=== PATIENT | female | born 1980 ===

== ENCOUNTER 2023-08-15 16:06 | Outpatient (AMB) | payer BC, SELFPAY ==
--- NOTE | 2023-08-15 16:09 | AM.OFFWIN_ITS ---
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 Denies fevers, chills, nausea or vomiting. Denies any recent sick contacts. PFSH Social History Patient Tobacco Use Status: Never used Tobacco Review of Systems Const All systems reviewed & are unremarkable except as noted in HPI and below Physical Exam Vital Signs: Last Vital Signs Temp 98.7 F 08/15/23 16:21 Pulse 62 08/15/23 16:21 BP 122/68 08/15/23 16:21 Pulse Ox 98 08/15/23 16:21 Oxygen Delivery Method Room Air 08/15/23 16:21 BMI result Body Mass Index 26.9 Const General: comfortable and no acute distress HEENT Head: Yes normocephalic Ears: external ears normal and TM's normal bilaterally General nose exam: Abnormal mucous membranes and turbinates present boggy and erythematous Face and sinus: Yes sinuses nontender Mouth: moist mucous membranes Throat: Yes posterior oropharynx normal Resp Effort & Inspection: normal respiratory effort, able to speak in complete sentences and no cough Auscultation: clear to auscultation bilaterally, no crackles, no rales, no rhonchi and no wheezes Cardio Rate: regular rate Rhythm: regular rhythm Results AMB Rapid Strep AMB Rapid Strep Negative Last Edit by Rylan Li CMA on 08/15/23 16 :47 Results Reviewed Results Reviewed: Laboratory Last Values Strep Scn Rapid Clinic Negative 08/15/23 16:47 Assessment & Plan Assessment & Plan (1) Acute pharyngitis: Code(s): J02.9 - Acute pharyngitis, unspecified Qualifiers: Pharyngitis/tonsillitis etiology: unspecified etiology Qualified Code(s): J02.9 - Acute pharyngitis, unspecified Plan: - OTC sore throat remedies - warm fluids with honey - Acetaminophen for pain relief. Orders: Orders SARS-CoV2/FLU/RSV Today J02.9 - Acute pharyngitis, unspecified AMB Rapid Strep Screen Today Z13.9 - Encounter for screening, unspecified Medications: New sbotidlbajvgo-XB-qbvkbegdsap 5-10-100 mg/5 mL (Adult Robitussin Peak Cold M-S) 10 mL PO Q4H PRN 237 mL 0RF cold symptoms J02.9 - Acute pharyngitis, unspecified benzocaine 20% 1 appl mucous membrane BID PRN 57 grams 0RF mouth irritation J02.9 - Acute pharyngitis, unspecified dexamethasone 20 mg PO DAILY 7 days 7 tabs 0RF J02.9 - Acute pharyngitis, unspecified Coding Level of Care Code Est Pt Level 3 (44728) Diagnoses Acute pharyngitis, unspecified etiology J02.9 Pharyngitis/tonsillitis etiology: unspecified etiology Time Spent (min) 15
[2023-08-15 16:21] VITALS: BP 122/68; PULSE 62; TEMP 37.1; O2SAT 98; BMI 26.9
== END 2023-08-15 17:16 | disposition home or self-care (01) ==
PROVIDERS: PCP Internal Medicine; Visit Provider Nurse Practitioner Family
DX: J02.9 Acute pharyngitis, unspecified (principal)
CPT/HCPCS: 87880; 99213

== ENCOUNTER 2023-08-15 16:41 | Outpatient (REF) | payer BC, SELFPAY ==
[2023-08-16 14:30] LABS: Influenza A PCR NEGATIVE (Negative); Influenza B PCR NEGATIVE (Negative); Resp Syncy Virus RNA Qual PCR NEGATIVE (Negative); SARS COV2 PCR INHOUSE NEGATIVE (Negative)
== END 2023-08-15 16:42 | disposition home or self-care (01) ==
LOC: HO.LAB 16:41
PROVIDERS: Visit Provider Nurse Practitioner Family
DX: Z11.52 Encounter for screening for COVID-19 (principal); Z20.822 Contact with and (suspected) exposure to COVID-19; J02.9 Acute pharyngitis, unspecified
CPT/HCPCS: 0241U

== ENCOUNTER 2023-09-02 15:39 | Outpatient (AMB) | payer BC, SELFPAY ==
[2023-09-02 13:35] VITALS: BP 112/80; PULSE 77; O2SAT 97; BMI 28.4
--- NOTE | 2023-09-02 13:35 | A.OFFPC_ITS ---
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 Allergies No Known Allergies Allergy (Verified 09/02/23 15:49) Medication List - Last Reconciled 09/02/23 by CONSTANTIN Serrano No Known Home Meds Tobacco use date assessed: 09/02/23 Dental Screening Dental Screen Date: 09/02/23 Did you have a dental visit in the last 12 months?: Yes Did you have a dental problem in the last 6 months where you did not have access to dental care?: No Was dental information given to patient?: Patient has dentist HPI HPI Comments History of Present Illness Details Patient is a 43-year-old female who I am meeting for the 1st time. She was seen in our walk-in clinic 2 weeks prior for pharyngitis, her symptoms have resolved aside from a lingering dry cough that gets worse when she lays down. Patient has no significant past medical history. Patient has surgical history of cystectomy on bilateral ovaries. Patient is due for mammogram, will refer. Patient is due for Pap smear, will refer. Patient has a chief complaint of snoring at night and feeling like she does not get restful sleep. Patient has no history of respiratory disease. Will refer to Sleep Medicine for evaluation of REGINA. The patient also states that after having 4 children she has developed incontinence when she is trying to exercise. Denies pelvic or saddle numbness. Will refer to OBGYN. [facility] Surgical History History of ovarian cystectomy Social History Housing: House Patient Tobacco Use Status: Never used Tobacco e-Cigarette/Vaping Use: Never Used service: No Current occupational exposures/hazards: No Cognitive needs: No Hearing needs: No Vision needs: No Female Reproductive History Menstrual Full term: 4 Questionnaire PHQ-9 Over the last 2 weeks, how often have you been bothered by any of the following problems? 1. Little interest or pleasure in doing things: not at all 2. Feeling down, depressed, or hopeless: not at all 3. Trouble falling or staying asleep, or sleeping too much: not at all 4. Feeling tired or having little energy: not at all 5. Poor appetite or overeating: not at all 6. Feeling bad about yourself - or that you are a failure or have let yourself or your family down: not at all 7. Trouble concentrating on things, such as reading the newspaper or watching television: not at all 8. Moving or speaking so slowly that other people could have noticed. Or the opposite - being so fidgety or restless that you have been moving around a lot more than usual: not at all 9. Thoughts that you would be better off or of hurting yourself in some way: not at all Total score: 0 Depression Screening Interpretation: Negative Depression Screening Done: Yes [id number] - PHQ-9 Billing: Yes Source: Developed by Drs. Jason Edward, Trena Sumner, Geovanny Tucker and colleagues, with an educational kaleb from [employer]. AUDIT C Alcohol Use Questionnaire (AUDIT-C) 1. How often do you have a drink containing alcohol?: Never 3. How often do you have six or more drinks on one occasion?: Never Total Score: 0 Score Reviewed/Action Taken: Yes MICHAEL-7 AMB Questionnaire MICHAEL-7 Feeling nervous, anxious, or on edge: 0 = Not at all Not being able to stop or control worryin = Not at all Worrying too much about different things: 0 = Not at all Trouble relaxin = Not at all Being so restless that it is hard to sit still: 0 = Not at all Becoming easily annoyed or irritable: 0 = Not at all Feeling afraid as if something awful might happen: 0 = Not at all Total MICHAEL-7 score (0-4 normal; 5-9 mild; 10-14 moderate; 15-21 severe): 0 Source: Developed by Drs. Jason Edward, Geovanny Kelley and colleagues, with an educational kaleb from [employer]. MICHAEL-7 Assessment Billing MICHAEL-7 Assessment Tool: MICHAEL-7 Assessment 06642 Review of Systems Const All systems reviewed & are unremarkable except as noted in HPI and below Reports snoring ENT Denies dizziness, Denies post nasal drip and Denies sore throat Card Denies chest pain and Denies dyspnea on exertion Resp Denies chest congestion, Reports cough, Denies dyspnea on exertion, Reports snoring and Denies wheezing Reports urinary incontinence (While exercising.) Musc Denies numbness and Denies tingling Neuro Denies dizziness, Denies numbness, Denies Sensory deficit (Neuro) and Denies tingling Aller/Immun Denies wheezing Physical exam (Primary Care) Care Plan Goal for BP management: Vital signs reviewed stable. Tobacco/Smoking Status: Tobacco use Status Tobacco use date assessed 09/02/23 09/02/23 13:37 Patient Tobacco Use Status Never used Tobacco 09/02/23 13:37 e-Cigarette/Vaping Use Never Used 09/02/23 13:37 Depression Screening Interpretation: Negative Const General: cooperative and no acute distress Orientation/consciousness: patient oriented x3 Limitations: no limitations HENMT Head: Yes normal to inspection and Yes normocephalic Eyes General: appearance normal, both eyes and all related structures Neck Neck: Yes normal visual inspection Chest Chest palpation & inspection: deferred Resp Effort & Inspection: normal respiratory effort Auscultation: clear to auscultation bilaterally Cardio Rate: regular rate Rhythm: regular rhythm Heart sounds: S1 normal heart sound present and S2 normal heart sound present Neuro General: patient oriented x3 and CN's II-XI intact bilaterally Sensory Exam: No Sensory deficit (Neuro) Psych Thought content: Normal thought content present Insight: Good insight present (Psych) Judgement: Good judgement present (Psych) Assessment and Plan Assessment & Plan (1) Snoring: Comment: Patient snores during the night. Will refer to Sleep Medicine for REGINA workup. Code(s): R06.83 - Snoring (2) Urinary incontinence: Comment: Will refer to pelvic floor therapy for stress incontinence while exercising. Patient form she can try using Kegel exercises to help with this. Code(s): R32 - Unspecified urinary incontinence Qualifiers: Urinary Incontinence type: stress incontinence Qualified Code(s): N39.3 - Stress incontinence (female) (male) (3) Cough: Comment: Patient has cough post pharyngitis. Patient will be given bends on today to be taken as directed. Code(s): R05.9 - Cough, unspecified Qualifiers: Cough type: acute Qualified Code(s): R05.1 - Acute cough Plan: Take your medications as prescribed. If you were prescribed antibiotics today, it is important that you take your medication to their entirety, do not skip any doses, do not finish them early. Follow-up with your primary care provider this week. Return to the emergency department with new or worsening symptoms. Such as fevers, chills, chest pain, shortness of breath, nausea, vomiting, dizziness, headache, vision changes, lethargy In case of emergency call 911 Plan Patient will draw labs follow-up with physical exam in 3-4 months. Orders: Orders UA CC w/rflx Micro + Cult Today Z13.89 - Encounter for screening for other disorder Lipid Panel Today Z13.220 - Encounter for screening for lipoid disorders Vitamin D 25-OH (D2 and D3) Today Z13.21 - Encounter for screening for nutritional disorder Vitamin B6 Today Z13.21 - Encounter for screening for nutritional disorder Vitamin B12 Today Z13.21 - Encounter for screening for nutritional disorder TSH reflex Free T4 Today Z13.29 - Encounter for screening for other suspected endocrine disorder Complete Blood Count Auto Diff Today Z13.0 - Encounter for screening for diseases of the blood and blood-forming organs and certain disorders involving the immune mechanism Comprehensive Met. 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
== END 2023-09-02 16:11 | disposition home or self-care (01) ==
LOC: HO.HMGC 15:39
PROVIDERS: PCP Nurse Practitioner Primary Care; Visit Provider Nurse Practitioner Primary Care
DX: R06.83 Snoring (principal); N39.3 Stress incontinence (female) (male); R05.1 Acute cough
CPT/HCPCS: 99214

== ENCOUNTER → 2023-10-03 16:30 | Outpatient (BNV) | payer BC, SELFPAY | PROVIDERS: PCP Nurse Practitioner Primary Care; Visit Provider Radiology Diagnostic Radiology | DX: Z12.31 Encounter for screening mammogram for malignant neoplasm of breast (principal) | CPT/HCPCS: 77063; 77067 ==

== ENCOUNTER 2023-10-03 16:34 | Outpatient (REF) | payer BC, SELFPAY ==
--- NOTE | ~2023-10-03 | MM_ITS ---
EXAMINATION: MM SCREENING DIGITAL BREAST TOMOSYNTHESIS, BILATERAL CLINICAL INFORMATION: Screening. Asymptomatic. COMPARISON: Mammography: This is a baseline mammogram. TECHNIQUE: Digital breast tomosynthesis is performed in both the craniocaudal and mediolateral oblique views along with computer-aided detection (CAD). Synthesized 2D images are generated from the tomosynthesis. FINDINGS: The breasts are heterogeneously dense, which may obscure small masses (ACR BI-RADS breast composition Category c). There are no significant masses, abnormal calcifications, or other abnormalities. MM/MM tomosynthesis screening BI IMPRESSION: No mammographic evidence of malignancy. ASSESSMENT: BI-RADS BI-RADS 1 - Negative RECOMMENDATION: Routine annual mammography screening. 1 year F/U This examination should not preclude the clinical evaluation of a suspicious palpable abnormality. This patient's information was entered into a reminder system with a target due date for their next mammogram.
== END 2023-10-03 16:35 | disposition home or self-care (01) ==
LOC: HO.MAMMO 16:34
PROVIDERS: PCP Nurse Practitioner Primary Care; Visit Provider Nurse Practitioner Primary Care
DX: Z12.31 Encounter for screening mammogram for malignant neoplasm of breast (principal)
CPT/HCPCS: 77063; 77067

== ENCOUNTER 2023-12-12 11:05 | Outpatient (REF) | payer BC, SELFPAY ==
[2023-12-12 13:28] LABS: Appearance Urine Clear; Color Urine Yellow; Glucose Urine UA Negative (Negative); Leukocyte Esterase Urine Small (1+) (Negative); Nitrite Urine Negative (Negative); UMIC TRIGGER UACC YES; Urine Blood Small (1+) (Negative); Urine Ketones Negative (Negative); Urine Protein Negative (Neg-Trace)
[2023-12-12 13:42] LABS: Bacteria Urine 1+ (None Seen); Hyaline Casts Urine 0-2 /LPF (0-2); RBC Urine 0-2 /HPF (0-2); UACC Culture Trigger YES; WBC Urine 0-5 /HPF (0-5)
[2023-12-12 14:03] LABS: MANUAL DIFF FLAG NO
[2023-12-12 14:16] LABS: Basophils Absolute Auto 0.1 X10*3/uL (0.0-0.2); Basophils Percent Auto 0.5 % (0-2); Eosinophils Absolute Auto 0.1 X10*3/uL (0.0-0.4); Eosinophils Percent Auto 0.6 % (0-4); Hematocrit 41.4 % (37.0-47.0); Hemoglobin 13.8 g/dl (12.0-16.0); Imm Gran Abs Auto 0.05 X10*3/uL (0.00-0.03); Imm Gran Pct Auto 0.5 % (0.0-0.4); Lymphocytes Absolute Auto 1.6 X10*3/uL (1.2-4.9); Lymphocytes Percent Auto 14.4 % (20-40); Mean Corpuscular HGB Conc 33.3 g/dl (31.0-35.0); Mean Corpuscular Hemoglobin 29.7 pg (27.0-33.0); Mean Corpuscular Volume 89.2 fL (80.0-98.0); Monocytes Absolute Auto 0.8 X10*3/uL (0.1-1.2); Monocytes Percent Auto 7.6 % (2-11); Neutrophils Absolute Auto 8.5 x10*3/uL (2.0-8.3); Neutrophils Percent Auto 76.4 % (45-73); Platelet Count 308 X10*3/uL (160-400); Red Blood Count 4.64 X10*6/uL (4.20-5.50); Red Cell Distribution Width 12.7 % (11.0-16.0); White Blood Count 11.1 X10*3/uL (4.8-10.8)
[2023-12-12 14:33] LABS: Alanine Aminotransferase 21 U/L (0-31); Albumin Level 4.6 g/dL (3.5-5.0); Alkaline Phosphatase 64 U/L (39-117); Anion Gap 13 (12-20); Aspartate Amino Transferase 18 U/L (5-31); Bilirubin Total 0.5 mg/dL (0.0-1.0); Blood Urea Nitrogen 7 mg/dL (9-16); Calcium 9.5 mg/dL (8.4-10.2); Carbon Dioxide 24 mmol/L (22-29); Chloride 104 mmol/L (96-108); Cholesterol 225 mg/dL (<200); Estimated Glomerular Filt Rate > 60; Glucose Random 96 mg/dL (60-115); HDL Cholesterol 46 mg/dL (>40); LDL Cholesterol Calculated 154 mg/dL (<100); Potassium 3.9 mmol/L (3.3-5.1); Sodium 137 mmol/L (135-145); Total Protein 8.2 g/dL (6.5-8.0); Triglycerides 128 mg/dL (<150)
[2023-12-12 14:48] LABS: TSH reflex Free T4 1.23 uIU/mL (0.32-4.0)
[2023-12-12 14:49] LABS: Vitamin B12 384 pg/mL (200-900)
[2023-12-16 11:02] LABS: Vitamin D 25-OH, D2 <4 ng/mL; Vitamin D 25-OH, D3 23 ng/mL; Vitamin D 25-OH, Total 23 ng/mL (30-100)
[2023-12-18 06:04] LABS: Vitamin B6 5.7 ng/mL (2.1-21.7)
== END 2023-12-12 11:06 | disposition home or self-care (01) ==
LOC: HO.HMGCLDS 11:05
PROVIDERS: PCP Nurse Practitioner Primary Care; Visit Provider Nurse Practitioner Primary Care
DX: Z13.220 Encounter for screening for lipoid disorders (principal); Z91.89 Other specified personal risk factors, not elsewhere classified; Z13.21 Encounter for screening for nutritional disorder; Z13.29 Encounter for screening for other suspected endocrine disorder; Z13.0 Encounter for screening for diseases of the blood and blood-forming organs and certain disorders involving the immune mechanism; R82.90 Unspecified abnormal findings in urine
CPT/HCPCS: 36415; 80053; 80061; 81001; 82306; 82607; 84207; 84443; 85025; 87086

== ENCOUNTER 2024-01-14 13:47 | Outpatient (AMB) | payer BC, SELFPAY ==
--- NOTE | 2024-01-14 13:50 | MHC.OFFVIS ---
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 Concha Siegel in [place]. She had her 4 children through that practice. She has had a Mirena IUD since the of her last child in 2018 so for about 6 years now she is not getting her periods with it but so uncomfortable and she feels like something is in there and she also is wondering if she can attribute effect of that to increased abdominal girth. She is considering taking it out and she is strongly encouraging to have vasectomy she says she only put the Mirena in temporarily until he got it but he never did. She is up-to-date on her mammograms, and she just recently started with her new primary care provider [facility] Surgical History History of ovarian cystectomy Social History Housing: House Patient Tobacco Use Status: Never used Tobacco e-Cigarette/Vaping Use: Never Used service: No Current occupational exposures/hazards: No Cognitive needs: No Hearing needs: No Vision needs: No Female Reproductive History Menstrual Age of Menarche: 12 Duration of menses: <3 days control method: progesterone injection Total pregnancies: 4 Full term: 4 History of abnormal pap smear: No (previous pap,neg unsure date(per patient)) Date of Mammogram: 10/03/23 (neg.) History of abnormal mammogram: No Physical Exam Vital Signs: Last Vital Signs BP 116/68 01/14/24 13:51 BMI result Body Mass Index 28.3 Const General: healthy appearing, comfortable, no acute distress, well developed and alert Nutritional Appearance: average body habitus Orientation/consciousness: patient oriented x3 Limitations: no limitations HEENT Head: Yes normocephalic Neck Neck: Yes normal visual inspection Chest Chest palpation & inspection: normal inspection of the chest Breast/axilla inspection: normal inspection of the breasts and normal inspection of the axillae Breast/axilla palpation: normal palpation of the breasts and normal palpation of the axillae Resp Effort & Inspection: normal respiratory effort GI Inspection: Yes normal to inspection, No Abdominal wall edema and No distended Palpation (GI): Soft to palpation and nontender Other: Within limits vagina and moist cervix multiparous pink smooth healthy appearing normal healthy appearing mucus no Mirena string visible nor able to be teased through cervical os Cytobrush either uterus small midposition mobile nontender adnexa nontender; fair to good tone with Kegel. Urged to do more Kegels. General: Yes bladder normal to palpation External Female Exam: normal external appearance and normal appearance of the urethra Speculum Exam - Vagina: normal appearance of the vagina, normal palpation and normal vaginal discharge Speculum Exam - Cervix: normal appearance of the cervix, normal palpation and nontender Bimanual exam- vagina & uterus: normal bimanual exam, normal palpation, uterine size normal, bladder normal to palpation, consistency normal, normal palpation, uterine mobility normal, uterine shape normal, No Cervical tenderness present, non-tender and no cervical motion tenderness Bimanual Exam- Adnexa, other: normal adnexae, no masses, normal and No adnexal tenderness Neuro General: patient oriented x3 Assessment & Plan Assessment & Plan (1) IUD complication: Comment: string not visible Code(s): T83.9XXA - Unspecified complication of genitourinary prosthetic device, implant and graft, initial encounter Category: Medical (2) Presence of 52 mg levonorgestrel-releasing intrauterine device (IUD): Comment: inserted sometime after of last child 2018, Dr Siegel Code(s): Z97.5 - Presence of (intrauterine) contraceptive device Category: Social Hx (3) Well woman exam with routine gynecological exam: Code(s): Z01.419 - Encounter for gynecological examination (general) (routine) without abnormal findings Category: Medical (4) Cervical cancer screening: Comment: 01/14/24- pap done Code(s): Z12.4 - Encounter for screening for malignant neoplasm of cervix Category: Medical Plan Pap smear was done. Testing for other infections done with the exam as well I am ordering a pelvic ultrasound to verify location the IUD. Discussed that the string often treats into the cervical os but that we do not have the instrument required to facilitate removal she and I will have an appointment after the ultrasound to review its findings. If the string is not still not visible at the visit she will be referred to the 501 office for attempted removal if the IUDs in the proper position. If it is not that will engender Shea discussion and plan as well. She is interested in going had an removing the Mirena IU S as she just wants it out at this time and if she needs to abstain until her gets a vasectomy she is fine with that. Orders: Orders PAP + HPV E6/E7 rfx 18/45 Today Z01.419 - Encounter for gynecological examination (general) (routine) without abnormal findings US pelvic and transvaginal Today T83.9XXA - Unspecified complication of genitourinary prosthetic device, implant and graft, initial encounter, Z97.5 - Presence of (intrauterine) contraceptive device CT NG by PCR Today Z20.2 - Contact with and (suspected) exposure to infections with a predominantly sexual mode of transmission Bacterial Vaginosis Panel Today N89.8 - Other specified noninflammatory disorders of vagina Coding Level of Care Code New Pt Prev Care 40-64y(38337) Diagnoses IUD complication T83.9XXA Presence of 52 mg levonorgestrel-releasing intrauterine device (IUD) Z97.5 Well woman exam with routine gynecological exam Z01.419 Cervical cancer screening Z12.4
[2024-01-14 13:51] VITALS: BP 116/68; BMI 28.3
== END 2024-01-14 14:45 | disposition home or self-care (01) ==
LOC: HO.HWSM 13:47
PROVIDERS: PCP Nurse Practitioner Primary Care; Visit Provider Advanced Practice Midwife
DX: Z01.419 Encounter for gynecological examination (general) (routine) without abnormal findings (principal); T83.9XXA Unspecified complication of genitourinary prosthetic device, implant and graft, initial encounter; Z97.5 Presence of (intrauterine) contraceptive device
CPT/HCPCS: 99386

== ENCOUNTER 2024-01-14 13:47 | Outpatient (REF) | payer BC, SELFPAY ==
[2024-01-15 06:06] LABS: CT PCR NOT DETECTED (Not Detect.); NG PCR NOT DETECTED (Not Detect.)
[2024-01-15 09:03] LABS: Bacterial Vaginosis PCR NEGATIVE (Negative); Candida Group PCR NOT DETECTED (Not Detect); Candida glab krusei PCR NOT DETECTED (Not Detect); Trichomonas vaginalis PCR NOT DETECTED (Not Detect)
[2024-01-16 09:28] LABS: HPV mRNA E6/E7 Not Detected (Not Detected)
== END 2024-01-14 13:48 | disposition home or self-care (01) ==
LOC: HO.LAB 13:47
PROVIDERS: PCP Nurse Practitioner Primary Care; Visit Provider Advanced Practice Midwife
DX: Z01.419 Encounter for gynecological examination (general) (routine) without abnormal findings (principal); Z11.51 Encounter for screening for human papillomavirus (HPV); Z20.2 Contact with and (suspected) exposure to infections with a predominantly sexual mode of transmission; N89.8 Other specified noninflammatory disorders of vagina
CPT/HCPCS: 0352U; 36415; 87491; 87591; 87624; 88175

== ENCOUNTER 2024-01-28 15:28 | Outpatient (AMB) | payer BC, SELFPAY ==
--- NOTE | 2024-01-28 15:51 | A.OFFVIS_ITS ---
Vital Signs 01/28/24 15:52 Height 5 ft 3 in Weight 160 lb BMI 28.3 BP 104/66 Blood Pressure Location Rt brachial Position Sitting Respiration 16 Pulse 76 Pulse Source Pulse Oximeter Pulse Oximetry (%) 98 Oxygen Delivery Method Room Air Intake Visit Reasons: [id number] Intake Note: Pt presents to the office for new pt consultation for snoring. Plastic Sheets Finishing Supervisor Required: No Allergies No Known Allergies Allergy (Verified 01/28/24 15:52) Medication List - Last Reconciled 01/28/24 by Leia Crawford, GLASS BLOWER HELPER levonorgestrel (Mirena) intrauterine HPI Comments Details: 43-yr-old female presents for new in-person patient visit for sleep consultation. Patient reports she has been awakening hearing herself groaning/moaning for some time, but did not think much of this. However, she has been noticing increased daytime tiredness and is now concerned she may have sleep apnea. Recent CBC, CMP, TSH- WNL. B-12 low normal- states started a vit B complex. Vit D total, 23 L- is not taking any supplement for this. Sleep questionnaire: Have you ever been diagnosed with a sleep disorder? No Have you ever had a sleep study in the past? No Have you ever been treated for a sleep disorder? No Do you take medications for a sleep disorder? Rarely takes Melatonin if has not slept well for a few days and feels a migraine coming on. Do you have difficulty initiating sleep? No Do you have difficulty maintaining sleep? Yes, Wakes up a lot . Do you wake up tired? Yes Do you have daytime tiredness or fatigue? Yes Do you easily fall asleep when inactive? Yes Do you snore? Yes Do you wake up gasping at night? No Do you have episodes of apneas? No Do you have episodes of nocturnal chest pain or dyspnea? No Do you have bruxism? Yes If yes, do you wear a mouth guard when sleeping? no. dentist has not advised her to. Do you have headaches upon awakening? Rare in the morning, but can have headache in afternoon when she feels exhausted Do you wake up with dry mouth or throat? No Do you have GERD? No Do you have nocturia? Yes- at least once a night Do you have nocturnal leg cramps? Occasional leg cramp- if stretches a certain way Do you have symptoms of restless legs? No Do you act out your dreams? No Do you have sleep paralysis? No Do you have drop attacks? No Do you ever have hypnogenic hallucinations? No Hypersomnolence questionnaire: Have you ever had episodes of sudden weakness? No Have you ever had episodes of sudden weakness associated with strong emotions? No Sleep hygiene questionnaire: What is your usual sleep routine? Usual bedtime is at 9:30pm; Usual wake-up time is at 5am. Do you take naps? rarely may take an after work nap Is your sleep environment cool, dark, and quiet? Yes Do you exercise? has just started again- 1/2 hr cardio- kickboxing class- hoping to do 3 days per week. Do you take caffeine or other stimulants? a cup of coffee in am Do you use electronics in bed? May use TV to wind down in bed before going to sleep. 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 [employer] Surgical History History of ovarian cystectomy Social History Housing: House Patient Tobacco Use Status: Never used Tobacco e-Cigarette/Vaping Use: Never Used service: No Current occupational exposures/hazards: No Cognitive needs: No Hearing needs: No Vision needs: No Female Reproductive History Menstrual Age of Menarche: 12 Physical Exam Vital Signs: Last Vital Signs Pulse 76 01/28/24 15:52 Resp 16 01/28/24 15:52 BP 104/66 01/28/24 15:52 Pulse Ox 98 01/28/24 15:52 Oxygen Delivery Method Room Air 01/28/24 15:52 BMI result Body Mass Index 28.3 Const General: no acute distress Orientation/consciousness: patient oriented x3 HEENT Other: Mallampati stage 4 Resp Effort & Inspection: normal respiratory effort and able to speak in complete sentences Neuro Other: Rhett TMJ w/o crepitus, clicking, pain. General: patient oriented x3 Cranial nerves: Yes CN's II-XII intact bilaterally Psych Mental Status: mental status grossly normal Speech and movement: Clear speech present Attitude: cooperative Assessment & Plan Assessment & Plan (1) Snoring: Comment: Patient snores during the night. Will refer to Sleep Medicine for REGINA workup. Code(s): R06.83 - Snoring Category: Medical (2) Sleep difficulties: Code(s): G47.9 - Sleep disorder, unspecified Category: Medical (3) Excessive daytime sleepiness: Code(s): G47.19 - Other hypersomnia Category: Medical (4) Vitamin D deficiency: Code(s): E55.9 - Vitamin D deficiency, unspecified Category: Medical Plan Pt is advised to undergo sleep study to assess for sleep apnea: HST. Start Vit D supplement- may help reduce daytime fatigue s/s. May use Melatonin prn. Reviewed simple sleep hygiene tips- such as avoiding late day naps. Will f/u with pt after study to discuss results and appropriate treatment optio ns. Pt to call with any worsening concerns or questions. Orders: Orders RT home sleep study Today G47.19 - Other hypersomnia, G47.9 - Sleep disorder, unspecified, R06.83 - Snoring Medications: New cholecalciferol (vitamin D3) 25 mcg PO DAILY 30 days 30 caps 6RF E55.9 - Vitamin D deficiency, unspecified Coding Level of Care Code New Pt Level 4 (57262) Diagnoses Snoring R06.83 Sleep difficulties G47.9 Excessive daytime sleepiness G47.19 Vitamin D deficiency E55.9 [place] Sleepiness Scale Questions Sitting and reading: high chance of dozing Watching TV: high chance of dozing Sitting inactive in a theater, movie etc.: would never doze As a passenger in a car for an hour without break: would never doze Lying down in the afternoon when circumstances permit: high chance of dozing Sitting and talking to someone: would never doze Sitting quietly after lunch without alcohol: high chance of dozing In a car, while stopped for a few minutes in the traffic: would never doze ESS < 10: normal, ESS > 12: pathologic: 12
[2024-01-28 15:52] VITALS: BP 104/66; PULSE 76; RESP 16; O2SAT 98; BMI 28.3
== END 2024-01-28 16:26 | disposition home or self-care (01) ==
PROVIDERS: PCP Nurse Practitioner Primary Care; Visit Provider Nurse Practitioner Family
DX: R06.83 Snoring (principal); G47.9 Sleep disorder, unspecified; G47.19 Other hypersomnia; E55.9 Vitamin D deficiency, unspecified
CPT/HCPCS: 99204

== ENCOUNTER → 2024-01-28 15:28 | Outpatient (BNVA) | payer BC, SELFPAY | PROVIDERS: PCP Nurse Practitioner Primary Care; Visit Provider Nurse Practitioner Family ==

== ENCOUNTER 2024-01-30 15:59 | Outpatient (REF) | payer BC, SELFPAY ==
--- NOTE | ~2024-01-30 | US_ITS ---
EXAMINATION: US PELVIS CLINICAL INFORMATION: IUD string missing. COMPARISON: None available. TECHNIQUE: Ultrasound of the pelvis is performed using both transabdominal and transvaginal transducers along with Doppler. Transvaginal imaging is performed due to inadequate visualization transabdominally. FINDINGS: Uterus: The uterus is anteverted and measures 8.9 x 4.6 x 7.2 cm. Endometrial stripe measures 5 mm in thickness. The IUD is low lying measuring approximately 1.5 cm below the fundal endometrium and appears rotated off axis. The uterus is smooth in contour and has normal myometrial echogenicity. No visible fibroid. Adnexa: Both ovaries are visualized. There is normal color flow to the adnexa. There is no ovarian torsion. There is no pelvic ascites or fluid collection. Right ovary measures 2.8 x 1.3 x 1.7 cm. Volume 3.3 mL. The right ovary appears normal. Left ovary measures 3.2 x 1.6 x 2.0 cm. Volume 5.5 mL. The left ovary appears normal. US/US pelvic and transvaginal IMPRESSION: The IUD appears low lying and slightly rotated as above. Electronically signed by: Morteza Stephen MD 02/19/2024 09:09 AM EDT
== END 2024-01-30 16:00 | disposition home or self-care (01) ==
LOC: HO.US 15:59
PROVIDERS: PCP Nurse Practitioner Primary Care; Visit Provider Advanced Practice Midwife
DX: T83.9XXA Unspecified complication of genitourinary prosthetic device, implant and graft, initial encounter (principal)
CPT/HCPCS: 76830; 76856

== ENCOUNTER 2024-02-26 14:21 | Outpatient (AMB) | payer BC, SELFPAY ==
--- NOTE | 2024-02-26 14:21 | A.OFFVIS_ITS ---
Intake Visit Reasons: US follow up ([phone]) Allergies No Known Allergies Allergy (Verified 02/26/24 14:21) Medication List - Last Reconciled 02/26/24 by Pretty Kiran CNM cholecalciferol (vitamin D3) 25 mcg PO DAILY 30 days levonorgestrel (Mirena) intrauterine Is last menstrual period known: No (IUD) HPI HPI US follow up ([phone]): Details: This is a tele visit to review patient's ultrasound findings with her. I've been in her chart and review the findings and also past visits and the ultrasound and findings. Calling her number it it goes to [employer]. I have left a message. Phone tag was played and eventually I reached the patient. [facility] Surgical History History of ovarian cystectomy Social History Housing: House Patient Tobacco Use Status: Never used Tobacco e-Cigarette/Vaping Use: Never Used service: No Current occupational exposures/hazards: No Cognitive needs: No Hearing needs: No Vision needs: No Female Reproductive History Menstrual Age of Menarche: 12 control method: progestin IUCD Total pregnancies: 4 Full term: 4 History of abnormal pap smear: No Telehealth Telehealth Telehealth Platform: Telephone Location of provider rendering services: practice address Location of patient: address on file Patient Identification confirmed using: Name, : Yes Telehealth method: voice only Patient verbally consented to treatment: Yes Patient verbally consented to billing insurance company: Yes Patient informed of any privacy concerns related to visit: Yes Minutes spent on Phone/Video with Pt.: 7 (5 cr/7 speaking w pt/5 charting) Results Reviewed Results Reviewed: [address] [address] Ultrasound Report Signed Patient: Briseida Adames MR#: [id number] : 1980 Acct:[id number] Age/Sex: 43 / F ADM Date: 01/30/24 Loc: HO.US Attending Dr: Pretty Kiran CNM Ordering Physician: Pretty Kiran CNM Date of Service: 01/30/24 Procedure(s): US pelvic and transvaginal Accession Number(s): [id number] cc: Dmitry ElizondoP; [place] [facility]~ EXAMINATION: US PELVIS CLINICAL INFORMATION: IUD string missing. COMPARISON: None available. TECHNIQUE: Ultrasound of the pelvis is performed using both transabdominal and transvaginal transducers along with Doppler. Transvaginal imaging is performed due to inadequate visualization transabdominally. FINDINGS: Uterus: The uterus is anteverted and measures 8.9 x 4.6 x 7.2 cm. Endometrial stripe measures 5 mm in thickness. The IUD is low lying measuring approximately 1.5 cm below the fundal endometrium and appears rotated off axis. The uterus is smooth in contour and has normal myometrial echogenicity. No visible fibroid. Adnexa: Both ovaries are visualized. There is normal color flow to the adnexa. There is no ovarian torsion. There is no pelvic ascites or fluid collection. Right ovary measures 2.8 x 1.3 x 1.7 cm. Volume 3.3 mL. The right ovary appears normal. Left ovary measures 3.2 x 1.6 x 2.0 cm. Volume 5.5 mL. The left ovary appears normal. US/US pelvic and transvaginal IMPRESSION: The IUD appears low lying and slightly rotated as above. Electronically signed by: Morteza Stephen MD 02/19/2024 09:09 AM EDT Dictated By: Morteza Stephen MD Signed By: <Electronically signed by Morteza Stephen MD in OV> 02/19/24 0909 DD/ 1610 TD/TT: 01/30/24 1636 New Car Salesperson: JS Assessment & Plan Assessment & Plan (1) Presence of 52 mg levonorgestrel-releasing intrauterine device (IUD): Comment: inserted sometime after of last child 2018, Dr Siegel Code(s): Z97.5 - Presence of (intrauterine) contraceptive device Category: Medical (2) IUD complication: Comment: string not visible; additionally it is 1.5 cm from fundus and rotated axis.... Code(s): T83.9XXA - Unspecified complication of genitourinary prosthetic device, implant and graft, initial encounter Category: Medical Plan I reviewed the ultrasound finding in detail with her including that the Mirena IUDs 1.5 cm from the fundus and rotated off its axis and described this to her anatomically. Given that I was not able to see the string I would not be able to attempt removal of the IUD so in this case her next visit needs to be with flute grinder to discuss the potential removal of the IUD she is very clear that she wants it and that she is not a all worried about contraception in that she plans to abstain until her gets a vasectomy. She does not want the IUD to be replaced. I told the patient if she does not hear from the office for scheduling with flute grinder within the next day or so she should call. Coding Level of Care Code Tele Est Pt Level 3 (26414) Diagnoses Presence of 52 mg levonorgestrel-releasing intrauterine device (IUD) Z97.5 IUD complication T83.9XXA Time Spent (min) 17
== END 2024-02-26 15:27 | disposition home or self-care (01) ==
LOC: HO.HWSM 14:21
PROVIDERS: PCP Internal Medicine; Visit Provider Advanced Practice Midwife
DX: T83.9XXA Unspecified complication of genitourinary prosthetic device, implant and graft, initial encounter (principal); Z97.5 Presence of (intrauterine) contraceptive device
CPT/HCPCS: 99441

== ENCOUNTER → 2024-02-26 14:21 | Outpatient (BNVA) | payer BC, SELFPAY | PROVIDERS: PCP Internal Medicine; Visit Provider Advanced Practice Midwife ==

== ENCOUNTER 2024-02-28 09:55 | Outpatient (AMB) | payer BC, SELFPAY ==
--- NOTE | 2024-02-28 10:21 | MHC.OFFVIS ---
Vital Signs 02/28/24 10:27 Height 5 ft 3 in Weight 158 lb 11.725 oz BMI 28.1 Intake Visit Reasons: IUD removal Patient Care Technician Instructor Required: No Information Interpreted: non-clinical & clinical Geosciences Faculty Member: Geosciences Faculty Member Present (Nadege DONIS) Accompanied by: Spouse Allergies No Known Allergies Allergy (Verified 02/28/24 10:27) Is last menstrual period known: No (mirena) HPI Comments Details: Presenting referred from Pretty Kiran CNM regarding overlying abnormal IUD location, for IUD removal and IUD thread not seen on pelvic exam. The patient is doing well with no complaints Pelvic ultrasound showed the following: Uterus: The uterus is anteverted and measures 8.9 x 4.6 x 7.2 cm. Endometrial stripe measures 5 mm in thickness. The IUD is low lying measuring approximately 1.5 cm below the fundal endometrium and appears rotated off axis. The uterus is smooth in contour and has normal myometrial echogenicity. No visible fibroid. Adnexa: Both ovaries are visualized. There is normal color flow to the adnexa. There is no ovarian torsion. There is no pelvic ascites or fluid collection. Right ovary measures 2.8 x 1.3 x 1.7 cm. Volume 3.3 mL. The right ovary appears normal. Left ovary measures 3.2 x 1.6 x 2.0 cm. Volume 5.5 mL. The left ovary appears normal. [facility] Surgical History History of ovarian cystectomy Social History Housing: House Patient Tobacco Use Status: Never used Tobacco e-Cigarette/Vaping Use: Never Used service: No Current occupational exposures/hazards: No Cognitive needs: No Hearing needs: No Vision needs: No Female Reproductive History Menstrual Age of Menarche: 12 Review of Systems Const All systems reviewed & are unremarkable except as noted in HPI and below Physical Exam Vital Signs: BMI result Body Mass Index 28.1 General: Yes no CVA tenderness External Female Exam: normal external appearance and normal appearance of the urethra Speculum Exam - Vagina: normal appearance of the vagina, normal palpation, no lesions and no masses Speculum Exam - Cervix: normal appearance of the cervix, normal palpation, no lesions, no masses and nontender Bimanual exam- vagina & uterus: normal bimanual exam, normal palpation, uterine size normal, normal palpation, uterine shape normal, No Cervical tenderness present and non-tender Bimanual Exam- Adnexa, other: normal adnexae Back/Spine/Pelvis Back: no CVA tenderness Office Procedures IUD Insert/Removal Details Details: Counseling/Consent: After discussing with the patient the risks of the procedure including bleeding, infection, scar tissue formation, , possible injury to blood vessels or nerves, chronic arm pain, blood transfusion, and irregular unpredictable bleeding Alternative options were discussed with the patient including but not limited: Do nothing. The patient signed the consent and agreed with the plan; all questions answered. Urine test was done in the office and was negative Preop dx: Requesting IUD removal Op: IUD removal Post op dx: same EBL= 10 cc Procedure: The patient was put in the dorsal lithotomy position a speculum was inserted in the vagina the IUD thread identified inside the endocervical canal. Using a Unique clamp the thread was grasped and the IUD pulled out with no complications. The patient tolerated the procedure well and was advised to use a different method for contraception. Discharge instructions: Instructions were given to the pt to call if temp>100.4, abdominal pain heavy vaginal bleeding, n/v occur. The patient verbalized understanding and all questions answered. This note was generated with a voice recognition program. Some errors may have been overlooked during the review of this note. Sometimes these errors may affect the content or meaning of a given sentence. 34982-[id number] Removal Procedure code (CPT) selection complete Results AMB Test Urine AMB Test Urine Negative Last Edit by Nadege Almaguer CMA on 02/28/24 10:33 Assessment & Plan Assessment & Plan (1) Encounter for IUD removal: Code(s): Z30.432 - Encounter for removal of intrauterine contraceptive device Category: Medical Plan: IUD removed, see procedure note. Offered the patient Mirena IUD insertion today, the patient would like to take a break and come back day 1 of her next cycle. Instructions given the patient to the backup method for control till IUD Mirena IUD is inserted (2) Family planning: Code(s): Z30.09 - Encounter for other general counseling and advice on contraception Category: Social Hx Plan: Discussed with the patient the different options of control including control pills/Nuvaring, DMPA, different types of IUD ?s ( cu vs progesterone) , sterilization. All the pros, cons, risks and benefits of each were discussed with the patient. The patient decided to go ahead with Mirena IUD, so a more detailed discussion was carried on including mechanism of action, risks (infection, uterine perforation, failure with ectopic , septic AB, ovarian cyst and pelvic pain, increased breast cancer risk and others) benefits (efficient contraceptive method, others), GC/CG were recently taken and were negative and the patient was asked to call day one of next cycle for IUD insertion. Orders: Orders AMB HCG Urine Test Today Z32.02 - Encounter for test, result negative Coding Level of Care Code Est Pt Level 3 (83101) Procedure Only Diagnoses Encounter for IUD removal Z30.432 Family planning Z30.09 CPT Codes Details - CPT: 92191-ZLL Removal ([id number])
[2024-02-28 10:27] VITALS: BMI 28.1
== END 2024-02-28 10:37 | disposition home or self-care (01) ==
PROVIDERS: PCP Internal Medicine; Visit Provider Obstetrics & Gynecology
DX: Z30.09 Encounter for other general counseling and advice on contraception (principal); Z30.432 Encounter for removal of intrauterine contraceptive device; Z32.02 Encounter for pregnancy test, result negative
CPT/HCPCS: 58301; 99213

== ENCOUNTER → 2024-02-28 09:55 | Outpatient (BNVA) | payer BC, SELFPAY | PROVIDERS: PCP Internal Medicine; Visit Provider Obstetrics & Gynecology | DX: Z30.432 Encounter for removal of intrauterine contraceptive device (principal) | CPT/HCPCS: 58301; 81025; J7298 ==

== ENCOUNTER 2024-03-02 11:40 | Outpatient (AMB) | payer BC, SELFPAY ==
--- NOTE | 2024-03-02 12:01 | A.OFFPC_ITS ---
Vital Signs 03/02/24 12:02 Height 5 ft 3 in Weight 159 lb 4 oz BMI 28.2 BP 118/80 Blood Pressure Location Rt brachial Position Sitting Pulse 76 Pulse Source Pulse Oximeter Pulse Oximetry (%) 96 Oxygen Delivery Method Room Air Intake Visit Reasons: OV (Hurt Shoulder) Intake Note: Pt is here today for LT shoulder pain, also pt states she did a quick turn yesterday and felt like she pulled a muscle on RT shoulder Allergies No Known Allergies Allergy (Verified 03/02/24 12:06) Medication List - Last Reconciled 03/02/24 by July Power MD cholecalciferol (vitamin D3) 25 mcg PO DAILY 30 days Tobacco use date assessed: 03/02/24 Dental Screening Dental Screen Date: 03/02/24 Did you have a dental visit in the last 12 months?: Yes Did you have a dental problem in the last 6 months where you did not have access to dental care?: No Was dental information given to patient?: Patient has dentist HPI OV (Hurt Shoulder) HPI Details Patient complains of left shoulder pain worse when lifting weights or reaching overhead on and off for 7 months. She thinks she injured it skiing but the pain worsened since patient has started weight lifting a few weeks ago. She has been taking ibuprofen on and off once or twice a week with good relief. [facility] Surgical History History of ovarian cystectomy Social History Housing: House Patient Tobacco Use Status: Never used Tobacco e-Cigarette/Vaping Use: Never Used service: No Current occupational exposures/hazards: No Cognitive needs: No Hearing needs: No Vision needs: No Female Reproductive History Menstrual Age of Menarche: 12 Questionnaire PHQ-9 Over the last 2 weeks, how often have you been bothered by any of the following problems? 1. Little interest or pleasure in doing things: not at all 2. Feeling down, depressed, or hopeless: not at all 3. Trouble falling or staying asleep, or sleeping too much: not at all 4. Feeling tired or having little energy: not at all 5. Poor appetite or overeating: not at all 6. Feeling bad about yourself - or that you are a failure or have let yourself or your family down: not at all 7. Trouble concentrating on things, such as reading the newspaper or watching television: not at all 8. Moving or speaking so slowly that other people could have noticed. Or the opposite - being so fidgety or restless that you have been moving around a lot more than usual: not at all 9. Thoughts that you would be better off or of hurting yourself in some way: not at all Total score: 0 Depression Screening Interpretation: Negative Depression Screening Done: Yes 94368 - PHQ-9 Billing: Yes Source: Developed by Drs. Jason Edward, Trena Sumner, Geovanny Tucker and colleagues, with an educational kaleb from [employer]. Thrive Questionnaire Date Thrive assessed: 03/02/24 I am a: Patient What is your living situation today?: I have a steady place to live Within the past 12 months, did the food you bought not last and you didn't have the money to get more?: Never true Within the past 12 months, did you worry whether your food would run out before you got money to buy more?: Never true Do you have trouble paying for medicines?: No Do you have trouble getting transportation to medical appointments?: No Do you have trouble paying your heating and electricity bill?: No Do you have trouble taking care of your child, family member or friend?: No Do you have trouble with day-to-day activities such as bathing, preparing meals, shopping, managing finances, etc.?: No Are you currently unemployed and looking for a job?: No Are you interested in more education?: No Please select the resources that you would like help with: None Currently or been in a relationship where the following occur: No concerns reported THRIVE Score: 0 AUDIT C Alcohol Use Questionnaire (AUDIT-C) 1. How often do you have a drink containing alcohol?: Never 3. How often do you have six or more drinks on one occasion?: Never Total Score: 0 Score Reviewed/Action Taken: Yes MICHAEL-7 AMB Questionnaire MICHAEL-7 Date MICHAEL - 7 assessed: 03/02/24 Feeling nervous, anxious, or on edge: 0 = Not at all Not being able to stop or control worryin = Not at all Worrying too much about different things: 0 = Not at all Trouble relaxin = Not at all Being so restless that it is hard to sit still: 0 = Not at all Becoming easily annoyed or irritable: 0 = Not at all Feeling afraid as if something awful might happen: 0 = Not at all Total MICHAEL-7 score (0-4 normal; 5-9 mild; 10-14 moderate; 15-21 severe): 0 Source: Developed by Drs. Jason Edward, Trena Sumner, Geovanny sullivan nd colleagues, with an educational kaleb from [employer]. MICHAEL-7 Assessment Billing MICHAEL-7 Assessment Tool: MICHAEL-7 Assessment 36114 Review of Systems Const All systems reviewed & are unremarkable except as noted in HPI and below Card Reports no additional complaints Resp Reports no additional complaints GI Reports no additional complaints Physical exam (Primary Care) Vital Signs: Last Vital Signs Pulse 76 03/02/24 12:02 BP 118/80 03/02/24 12:02 Pulse Ox 96 03/02/24 12:02 Oxygen Delivery Method Room Air 03/02/24 12:02 BMI result Body Mass Index 28.2 Tobacco/Smoking Status: Tobacco use Status Tobacco use date assessed 03/02/24 03/02/24 12:10 Patient Tobacco Use Status Never used Tobacco 03/02/24 12:03 e-Cigarette/Vaping Use Never Used 03/02/24 12:03 PHQ-9: PHQ-9 Score PHQ-9: Total score 0 03/02/24 12:14 Depression Screening Interpretation: Negative Thrive Assessment: Date of Thrive Assessment Date Thrive assessed 03/02/24 03/02/24 12:14 Currently or been in a relationship where the following occur: No concerns reported Const General: no acute distress HENMT Head: Yes normal to inspection Neck Neck: Yes supple Resp Effort & Inspection: normal respiratory effort Auscultation: clear to auscultation bilaterally Cardio Rhythm: regular rhythm Heart sounds: S1 normal heart sound present and S2 normal heart sound present Extrem Other: There is paraspinal tenderness in the thoracic region left more than right, there is a slightly decreased range of motion of left shoulder, posterior and supraspinatus tenderness, no soft tissue swelling Assessment and Plan Assessment & Plan (1) Well woman exam with routine gynecological exam: Code(s): Z01.419 - Encounter for gynecological examination (general) (routine) without abnormal findings (2) Shoulder pain, left: Code(s): M25.512 - Pain in left shoulder Plan: For chronic left shoulder tendinitis referred to physical therapy Orders: Orders Comprehensive Lewis. Panel Fast 7 Months Z01.419 - Encounter for gynecological examination (general) (routine) without abnormal findings Lipid Panel 7 Months Z01.419 - Encounter for gynecological examination (general) (routine) without abnormal findings Complete Blood Count Auto Diff 7 Months Z01.419 - Encounter for gynecological examination (general) (routine) without abnormal findings TSH reflex Free T4 7 Months Z01.419 - Encounter for gynecological examination (general) (routine) without abnormal findings PT Evaluation and Treatment Today M25.512 - Pain in left shoulder Coding Level of Care Code Est Pt Level 3 (00599) Diagnoses Well woman exam with routine gynecological exam Z01.419 Shoulder pain, left M25.512 Additional Codes MICHAEL-7 Assessment Billing - MICHAEL-7 Assessment Tool: MICHAEL-7 Assessment 02809 ([id number])
[2024-03-02 12:02] VITALS: BP 118/80; PULSE 76; O2SAT 96; BMI 28.2
== END 2024-03-02 12:52 | disposition home or self-care (01) ==
PROVIDERS: PCP Internal Medicine; Visit Provider Internal Medicine
DX: Z01.419 Encounter for gynecological examination (general) (routine) without abnormal findings (principal); M25.512 Pain in left shoulder

== ENCOUNTER → 2024-03-02 11:40 | Outpatient (BNVA) | payer BC, SELFPAY | PROVIDERS: PCP Internal Medicine; Visit Provider Internal Medicine | DX: M25.512 Pain in left shoulder (principal); M77.8 Other enthesopathies, not elsewhere classified | CPT/HCPCS: 96127 ==

== ENCOUNTER 2024-03-24 12:38 | Outpatient (AMB) | payer BC, SELFPAY ==
--- NOTE | 2024-03-24 13:03 | AM.OFFWIN_ITS ---
Intake Vital Signs 03/24/24 13:04 Height 5 ft 3 in Weight 160 lb BMI 28.3 BP 110/74 Blood Pressure Location Lt brachial Position Sitting Pulse 80 Pulse Source Pulse Oximeter Temp 98.2 F Temp Source Oral Pulse Oximetry (%) 97 Oxygen Delivery Method Room Air Intake Visit Reasons: EP-sore throat, headaches, nose congestion Intake Note: Patient here for sore throat,headache and congestion that started yesterday. She mentioned her kids are getting over having strep Patient Tobacco Use Status: Never used Tobacco Allergies No Known Allergies Allergy (Verified 03/24/24 13:05) Do you need a note to return to daycare/school/sports/work: Yes HPI HPI Comments History of Present Illness Details Patient is a 43-year-old female complaining of 2 days of a sore throat, headache, some nasal congestion. She denies any shortness of breath, fevers, nausea, vomiting or diarrhea or cough. She tells me that her kids just got over strep. She states she has been taking ibuprofen but it is not really helping a lot. [facility] Surgical History History of ovarian cystectomy Social History Housing: House Patient Tobacco Use Status: Never used Tobacco e-Cigarette/Vaping Use: Never Used service: No Current occupational exposures/hazards: No Cognitive needs: No Hearing needs: No Vision needs: No Female Reproductive History Menstrual Age of Menarche: 12 Review of Systems Const All systems reviewed & are unremarkable except as noted in HPI and below Physical Exam Vital Signs: Last Vital Signs Temp 98.2 F 03/24/24 13:04 Pulse 80 03/24/24 13:04 BP 110/74 03/24/24 13:04 Pulse Ox 97 03/24/24 13:04 Oxygen Delivery Method Room Air 03/24/24 13:04 BMI result Body Mass Index 28.3 Const General: cooperative, comfortable, no acute distress and tired appearing Orientation/consciousness: patient oriented x3 Limitations: no limitations HEENT Head: Yes normal to inspection Ears: hearing grossly normal bilaterally, external ears normal and TM's normal bilaterally General nose exam: Normal external nose present, Normal nares present and No nasal discharge present Face and sinus: Yes normal facial exam and Yes sinuses nontender Mouth: Normal oral and palatal mucosa present and moist mucous membranes Throat: Yes tonsils normal, Yes uvula midline and Yes posterior oropharynx abnormal (Erythema) Eyes General: appearance normal, both eyes and all related structures Neck Neck: Yes normal visual inspection Resp Effort & Inspection: normal respiratory effort, able to speak in complete sentences, no respiratory distress, not tachypneic, no tripod positioning and no use of accessory muscles Skin General skin exam: no rashes or lesions noted Neuro General: patient oriented x3 Extrem General: Yes normal to inspection and Yes no clubbing, cyanosis or edema Results AMB Rapid Strep AMB Rapid Strep Negative Last Edit by BENIGNO Dunaway on 03/24/24 13:15 Assessment & Plan Assessment & Plan (1) Strep pharyngitis: Code(s): J02.0 - Streptococcal pharyngitis Plan: Rapid strep in office is negative, however Centor score is 3 so I will treat based on this and the fact that her kids have all just recovered from strep pharyngitis and required antibiotics. Plan see above Orders: Orders AMB Rapid Strep Screen Today Z13.9 - Encounter for screening, unspecified Medications: New amoxicillin 500 mg PO Q12H 20 tabs 0RF Coding Level of Care Code Est Pt Level 3 (75542) Diagnoses Strep pharyngitis J02.0
[2024-03-24 13:04] VITALS: BP 110/74; PULSE 80; TEMP 36.8; O2SAT 97; BMI 28.3
== END 2024-03-24 14:12 | disposition home or self-care (01) ==
PROVIDERS: PCP Internal Medicine; Visit Provider Physician Assistant
DX: J02.0 Streptococcal pharyngitis (principal); Z13.9 Encounter for screening, unspecified

== ENCOUNTER → 2024-03-24 12:38 | Outpatient (BNVA) | payer BC, SELFPAY | PROVIDERS: PCP Internal Medicine; Visit Provider Physician Assistant | DX: J02.0 Streptococcal pharyngitis (principal) | CPT/HCPCS: 87880 ==

== ENCOUNTER → 2024-04-01 14:57 | Outpatient (REF) | payer BC, SELFPAY | LOC: HO.SL 14:57 | PROVIDERS: PCP Internal Medicine; Visit Provider Nurse Practitioner Family | DX: R06.83 Snoring (principal); G47.9 Sleep disorder, unspecified; G47.19 Other hypersomnia | CPT/HCPCS: 95806 ==

== ENCOUNTER → 2024-04-01 15:15 | Outpatient (BNV) | payer BC, SELFPAY | PROVIDERS: PCP Internal Medicine; Visit Provider Psychiatry & Neurology Neurology | DX: R06.83 Snoring (principal) | CPT/HCPCS: 95806 ==

== ENCOUNTER 2024-04-08 10:32 | Outpatient (AMB) | payer BC, SELFPAY ==
[2024-04-08 10:34] VITALS: BP 108/66; PULSE 77; O2SAT 99; BMI 28.2
--- NOTE | 2024-04-08 10:34 | A.OFFPC_ITS ---
Vital Signs 04/08/24 10:34 Height 5 ft 3 in Weight 159 lb BMI 28.2 BP 108/66 Blood Pressure Location Lt brachial Position Sitting Pulse 77 Pulse Source Pulse Oximeter Pulse Oximetry (%) 99 Oxygen Delivery Method Room Air Intake Visit Reasons: Medications Intake Note: Pt is here today for a follow up visit. Allergies No Known Allergies Allergy (Verified 04/08/24 10:39) Medication List - Last Reconciled 04/08/24 by July Power MD cholecalciferol (vitamin D3) 25 mcg PO DAILY 30 days Tobacco use date assessed: 03/02/24 Dental Screening Dental Screen Date: 03/02/24 HPI Medications HPI Details Pt presents for PE. She complains of persistent left shoulder pain worse with lifting her arm above the head or reaching back. She has not started physical therapy yet but has an appointment next month. Patient complains of stress incontinence for few years worse since she delivered her last child 6 years ago. She tried Kegel's exercises but not consistently. 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 1. Little interest or pleasure in doing things: not at all 2. Feeling down, depressed, or hopeless: not at all 3. Trouble falling or staying asleep, or sleeping too much: several days 4. Feeling tired or having little energy: not at all 5. Poor appetite or overeating: not at all 6. Feeling bad about yourself - or that you are a failure or have let yourself or your family down: not at all 7. Trouble concentrating on things, such as reading the newspaper or watching television: not at all 8. Moving or speaking so slowly that other people could have noticed. Or the opposite - being so fidgety or restless that you have been moving around a lot more than usual: not at all 9. Thoughts that you would be better off or of hurting yourself in some way: not at all Total score: 1 Depression Screening Interpretation: Negative Depression Screening Done: Yes 26924 - PHQ-9 Billing: Yes Source: Developed by Drs. Jason Edward, Trena Sumner, Geovanny Tucker and colleagues, with an educational kaleb from [employer]. Thrive Questionnaire Date Thrive assessed: 03/02/24 I am a: Patient What is your living situation today?: I have a steady place to live Within the past 12 months, did the food you bought not last and you didn't have the money to get more?: Never true Within the past 12 months, did you worry whether your food would run out before you got money to buy more?: Never true Do you have trouble paying for medicines?: No Do you have trouble getting transportation to medical appointments?: No Do you have trouble paying your heating and electricity bill?: No Do you have trouble taking care of your child, family member or friend?: No Do you have trouble with day-to-day activities such as bathing, preparing meals, shopping, managing finances, etc.?: No Are you currently unemployed and looking for a job?: No Are you interested in more education?: Yes Please select the resources that you would like help with: Childcare and Education Currently or been in a relationship where the following occur: No concerns reported THRIVE Score: 0 AUDIT C Alcohol Use Questionnaire (AUDIT-C) 1. How often do you have a drink containing alcohol?: Monthly or less 2. How many drinks containing alcohol do you have on a typical day when you are drinking?: 1 or 2 3. How often do you have six or more drinks on one occasion?: Never Total Score: 1 MICHAEL-7 AMB Questionnaire MICHAEL-7 Date MICHAEL - 7 assessed: 04/08/24 Feeling nervous, anxious, or on edge: 1 = Several days Not being able to stop or control worryin = Not at all Worrying too much about different things: 0 = Not at all Trouble relaxin = Not at all Being so restless that it is hard to sit still: 0 = Not at all Becoming easily annoyed or irritable: 1 = Several days Feeling afraid as if something awful might happen: 0 = Not at all Total MICHAEL-7 score (0-4 normal; 5-9 mild; 10-14 moderate; 15-21 severe): 2 Source: Developed by Drs. Jason Edward, Trena Sumner, Geovanny Tucker and colleagues, with an educational kaleb from [employer]. Review of Systems Const All systems reviewed & are unremarkable except as noted in HPI and below Eyes Reports no additional complaints ENT Reports no additional complaints Card Reports no additional complaints Resp Reports no additional complaints GI Reports no additional complaints Reports no additional complaints Musc Reports no additional complaints Physical exam (Primary Care) Vital Signs: Last Vital Signs Pulse 77 04/08/24 10:34 BP 108/66 04/08/24 10:34 Pulse Ox 99 04/08/24 10:34 Oxygen Delivery Method Room Air 04/08/24 10:34 BMI result Body Mass Index 28.2 Tobacco/Smoking Status: Tobacco use Status Tobacco use date assessed 03/02/24 04/08/24 10:36 Patient Tobacco Use Status Never used Tobacco 04/08/24 10:36 e-Cigarette/Vaping Use Never Used 04/08/24 10:36 PHQ-9: PHQ-9 Score PHQ-9: Total score 1 04/08/24 10:41 Depression Screening Interpretation: Negative Thrive Assessment: Date of Thrive Assessment Date Thrive assessed 03/02/24 04/08/24 10:36 Currently or been in a relationship where the following occur: No concerns reported Const General: no acute distress HENMT Head: Yes normal to inspection Ears: hearing grossly normal bilaterally General nose exam: Normal external nose present Mouth: Normal oral and palatal mucosa present Throat: Yes posterior oropharynx normal Eyes General: appearance normal, both eyes and all related structures Neck Neck: Yes no lymphadenopathy and Yes supple Resp Effort & Inspection: normal respiratory effort Auscultation: clear to auscultation bilaterally Cardio Rhythm: regular rhythm Heart sounds: S1 normal heart sound present and S2 normal heart sound present GI Inspection: Yes normal to inspection Palpation (GI): Soft to palpation Percussion: Yes normal to percussion Auscultation: normal bowel sounds Extrem Other: slightly decreased range of motion in the left shoulder, no joint tenderness or swelling General: Yes no clubbing, cyanosis or edema Coding Level of Care Code Est Pt Prev Care 40-64y(00681) Diagnoses Stress incontinence of urine N39.3 Urinary Incontinence type: stress incontinence Cervical cancer screening Z12.4 Annual physical exam Z00.00 Assessment & Plan Assessment & Plan (1) Urinary incontinence: Comment: stress, refer to urology Code(s): R32 - Unspecified urinary incontinence Category: Medical Qualifiers: Urinary Incontinence type: stress incontinence Qualified Code(s): N39.3 - Stress incontinence (female) (male) Plan: Patient was advised to do Kegel exercises regularly and will be referred to Urology for evaluation (2) Cervical cancer screening: Comment: 01/14/24- pap equals negative with negative HPV. Code(s): Z12.4 - Encounter for screening for malignant neoplasm of cervix Category: Medical Plan: Up-to-date with the Pap smear (3) Annual physical exam: Code(s): Z00.00 - Encounter for general adult medical examination without abnormal findings Category: Medical Plan: Well-balanced low-cholesterol diet regular physical activity discussed with the patient she is up-to-date with the mammogram. Patient will return in 6 months for follow-up with a fasting lipid profile before Orders: Orders Lipid Panel 6 Months E78.5 - Hyperlipidemia, unspecified XR shoulder LT min 2V Today M12.819 - Other specific arthropathies, not elsewhere classified, unspecified shoulder Referrals Urology Referral N39.3 - Stress incontinence (female) (male)
== END 2024-04-08 11:20 | disposition home or self-care (01) ==
PROVIDERS: PCP Internal Medicine; Visit Provider Internal Medicine
DX: N39.3 Stress incontinence (female) (male) (principal); Z12.4 Encounter for screening for malignant neoplasm of cervix; Z00.00 Encounter for general adult medical examination without abnormal findings

== ENCOUNTER → 2024-04-08 10:32 | Outpatient (BNVA) | payer BC, SELFPAY | PROVIDERS: PCP Internal Medicine; Visit Provider Internal Medicine ==

== ENCOUNTER 2024-05-20 08:00 | Outpatient (RCR) | payer BC, SELFPAY ==
--- NOTE | 2024-04-20 08:51 | MHC.PT.EP ---
[facility] [place] Office [place] Office [place] Office [address] Manisha Walton [address] [phone] F: [phone] F: [phone] F: [phone] F: [phone] Physical Therapy Plan of Care Date of Evaluation: 04/20/24 Date of Surgery: Diagnosis: This is a 43 yo female presenting to skilled PT with a script for pain in L shoulder. Assessment: This is a 43 yo female presenting to skilled PT with a script for pain in L shoulder. Patient reporting ongoing shoulder pain for about a year now, insidious onset. Her pain has been the same, no worse and no better but is really limiting her with her day to day tasks. She has tried to change her desk positioning at work, heat and ibuprofen but nothing has worked. She gets a dull pain at rest and then gets a throbbing pain with movement. Pain increases with exercising, lifting/use of the L arm. 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 Dhillon is located UT and shoots into the shoulder blade but can range to the ACJ and GHJ with end range shoulder movements. She does endorse neck pain. Assessment reveals pain that ranges from up to a 4-10/10 at the worst. Patient demos decreased L shoulder and cervical ROM, strength of L shoulder and scapular stabilizers, TTP at UT, lats, medial border of scap and impaired posture with forward head and rounded shoulders, anterior translation of GHJ and compensatory shrugging at UT. Based on functional limitations, impaired QOL and pain tolerance patient is a good candidate for skilled PT 2x/wk for 4wks. 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 Manual therapy to restore motion and function. Therapeutic exercise to improve strength and flexibility. Neuromuscular re-education for posture and balance. Therapeutic activities to return to functional activities of daily living. Electronically signed by: Laury Martin PT Please sign and return to therapist. Thank you for your referral.
--- NOTE | 2024-06-19 09:33 | MHC.PT.DC ---
[facility] [place] Office [place] Office [place] Office [address] Manisha Walton 140 [facility] [phone] F: [phone] F: [phone] F: [phone] F: [phone] Physical Therapy Discharge Report Diagnosis: This is a 43 yo female presenting to skilled PT with a script for pain in L shoulder. Date of Surgery: Date of Evaluation: 04/20/24 Date of Discharge: 06/19/24 Treatments to Date: 8 Cancellations to Date: 0 No Shows to Date: 0 Discharge Status: Achieved Goals Improved Function Independent with HEP Patient Elected to Stop Recommend MD Follow-up Discharge Summary: 05/20: Patient has come to 8 visits of PT, she has improved her ROM, strength and pain however does continue to have some lingering symptoms, crepitis and functional limitations. At this time she is I in her HEP, has met most of her goals and is ready for DC however I did recommend following up with her PCP about her MRI that she was referred for. Electronically signed by: Laury Martin, PT Please sign and return to therapist. Thank you for your referral.
== END 2024-06-19 09:33 | disposition home or self-care (01) ==
LOC: HO.PTCHIC 08:00
PROVIDERS: PCP Internal Medicine; Visit Provider Internal Medicine
DX: M25.512 Pain in left shoulder (principal)
CPT/HCPCS: 97110; 97140; 97162

== ENCOUNTER 2024-06-15 15:31 | Outpatient (AMB) | payer BC, SELFPAY ==
--- NOTE | 2024-06-15 15:38 | A.OFFVIS_ITS ---
Intake Visit Reasons: stres incontinence Intake Note: New Patient presents for initial visit for incontinence Urology Medications: none Blood Thinner: none PVR: 0ml's Accompanied by: Self / Same As Patient Allergies No Known Allergies Allergy (Verified 06/15/24 20:23) Medication List - Last Reconciled 06/15/24 by EBENEZER Waite cholecalciferol (vitamin D3) 25 mcg PO DAILY 30 days HPI Comments Details: Briseida is a 43-year-old female patient of . She presents to the office today as a new patient for stress incontinence. In discussion with the patient today she reports noting stress incontinence to be present over the last 6 years however feels it is worsening. She reports having had 4 vaginal births in the past and feels after the of her last child she felt stress incontinence has been present. She discusses finding it difficult to workout and or play soccer with her children as she tends to experience episodes of stress incontinence at that time. She is not currently utilizing any Petra pads at this time. She also reports feeling of fullness to her bladder at times. She otherwise denies nocturia, hematuria, dysuria, foul smelling urine, changes to urinary stream, flank pain, fever, and or chills. In office urinalysis results reviewed with the patient today. PVR 0 mL. We discussed at length potential causes of stress incontinence as well as further treatment options. All questions were answered. She otherwise offers no other issues or concerns at this time. 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 Tobacco Use Status: Never used Tobacco e-Cigarette/Vaping Use: Never Used service: No Current occupational exposures/hazards: No Cognitive needs: No Hearing needs: No Vision needs: No Female Reproductive History Menstrual Age of Menarche: 12 Review of Systems Const All systems reviewed & are unremarkable except as noted in HPI and below Physical Exam Const General: cooperative, healthy appearing, comfortable, no acute distress, well developed, alert and awake Orientation/consciousness: patient oriented x3 Limitations: no limitations HEENT Head: Yes normal to inspection, Yes normocephalic and Yes atraumatic Ears: hearing grossly normal bilaterally Eyes General: appearance normal, both eyes and all related structures Neck Neck: Yes normal visual inspection and Yes trachea midline Chest Chest palpation & inspection: normal inspection of the chest Resp Effort & Inspection: normal respiratory effort and able to speak in complete sentences Cardio Rate: regular rate GI Inspection: Yes normal to inspection General: Yes no CVA tenderness Back/Spine/Pelvis Back: no CVA tenderness Skin General skin exam: no rashes or lesions noted Neuro General: patient oriented x3 Extrem General: Yes normal to inspection Psych Appearance: grossly normal and well kempt Mental Status: mental status grossly normal Speech and movement: Normal speech and movement present and Clear speech present Affect: normal affect Attitude: cooperative Thought process: Normal thought process present Thought content: Normal thought content present Insight: Fair insight present (Psych) Judgement: Fair judgement present (Psych) Office Procedures Post Void Residual Post Residual Void Post Void Residual (PVR): 0 [id number] Void Residual by ultrasound Results AMB Urinalysis, Automated UA Leukoctes 0 Pamela/uL Last Edit by [employer] on 06/15/24 16:10 UA Nitrite Last Edit by [email or web address] Nathaniel on 06/15/24 16:10 UA Urobilinogen 0.2 mg/dL Last Edit by [employer] on 06/15/24 16:10 UA Protein 0 mg/dL Last Edit by [employer] on 06/15/24 16:10 UA pH 6.0 Last Edit by [employer] on 06/15/24 16:10 UA Blood 0 Logan/uL Last Edit by [employer] on 06/15/24 16:10 UA Specific White 1.020 Last Edit by [employer] on 06/15/24 16:10 UA Ketone Last Edit by [employer] on 06/15/24 16:10 UA Bilirubin 0 mg/dL Last Edit by Ananth Armstrong on 06/15/24 16:10 UA Glucose 0 mg/dL Last Edit by Ananth Armstrong on 06/15/24 16:10 Results Reviewed Results Reviewed: Laboratory Last Values Urine pH (Auto) 6.0 06/15/24 16:09 Specific White (Auto) 1.020 06/15/24 16:09 Urine Protein (Auto) 0 mg/dL 06/15/24 16:09 Glucose (UA)(Auto) 0 mg/dL 06/15/24 16:09 Urine Blood (Auto) 0 Logan/uL 06/15/24 16:09 Urine Bilirubin (Auto) 0 mg/dL 06/15/24 16:09 Urine Urobilinogen (Auto) 0.2 mg/dL 06/15/24 16:09 Leukocyte Esterase (Auto) 0 Pamela/uL 06/15/24 16:09 Assessment & Plan Assessment & Plan (1) Stress incontinence: Code(s): N39.3 - Stress incontinence (female) (male) Category: Medical (2) Sensation of pressure in bladder area: Code(s): R39.89 - Other symptoms and signs involving the genitourinary system Category: Medical Plan In office urinalysis results reviewed with the patient today; as noted above. PVR 0 mL. We discussed at length further treatment options of stress incontinence to include pelvic floor therapy as well as in office urodynamics for further assessment evaluation. Patient discusses her reluctancy to taking medications. Will obtain retroperitoneal ultrasound for further assessment evaluation. Will refer to pelvic floor therapy as discussed. We discussed bladder triggers/irritants. Will schedule for next available in office urodynamics for further assessment evaluation. Follow-up in 1-3 months with imaging to be completed prior; or sooner with any issues, concerns, and or questions. Orders: Orders AMB Post Void Residual by ultrasound Today N39.3 - Stress incontinence (female) (male) US retroperitoneal comp Today N39.3 - Stress incontinence (female) (male) AMB Urinalysis Automated Today Z13.9 - Encounter for screening, unspecified PT Evaluation and Treatment Today N39.3 - Stress incontinence (female) (male) Patient Instructions: The patient had an opportunity to ask questions regarding the treatment plan. All questions were answered. Physical exam, labs, and imaging were discussed and reviewed in detail. As well as risks, benefits, and discussion of treatment choices. No major barriers to understanding were identified. The patient expressed understanding and agreement with the above treatment plan. The patient was made aware they should contact our office by phone for worsening of their current condition, the appearance of new symptoms, or with any questions or concerns. Compliance is encouraged with any medications and follow up testing that is ordered. It is a privilege to be allowed the opportunity to participate in? your urological care.? Again, if you have any questions or concerns If you have any questions or concerns please do not hesitate to contact me. The office is [phone]. This note is constructed using voice recognition software. While every effort has been made to ensure accuracy machine shop apprentice errors may have been included. Yours sincerely, EBENEZER Waite Coding Level of Care Code New Pt Level 4 (92025) Diagnoses Stress incontinence N39.3 Sensation of pressure in bladder area R39.89 CPT Codes Post Residual Void - PVR CPT Code: 95667-Oolu Void Residual by ultrasound ([id number]) Time Spent (min) 35
== END 2024-06-15 16:29 | disposition home or self-care (01) ==
PROVIDERS: PCP Internal Medicine; Visit Provider Nurse Practitioner Family
DX: N39.3 Stress incontinence (female) (male) (principal); R39.89 Other symptoms and signs involving the genitourinary system; Z13.9 Encounter for screening, unspecified
CPT/HCPCS: 99204

== ENCOUNTER → 2024-06-15 15:31 | Outpatient (BNVA) | payer BC, SELFPAY | PROVIDERS: PCP Internal Medicine; Visit Provider Nurse Practitioner Family | DX: N39.3 Stress incontinence (female) (male) (principal); R39.89 Other symptoms and signs involving the genitourinary system | CPT/HCPCS: 51798; 81003 ==

== ENCOUNTER 2024-07-17 08:37 | Outpatient (REF) | payer BC, SELFPAY ==
--- NOTE | ~2024-07-17 | XR_ITS ---
EXAMINATION: XR KNEE 3 VIEWS RIGHT HISTORY: M17.11 - Unilateral primary osteoarthritis, right knee COMPARISON: There are no prior studies available for comparison. FINDINGS: Standing AP views of the bilateral knees and additional lateral and sunrise patellar views of the right knee are submitted. Osseous mineralization is normal. There is no fracture or dislocation. The joint spaces are preserved. The soft tissues are unremarkable. There is no joint effusion. XR/XR knee RT 3V IMPRESSION: Unremarkable examination of the right knee. Electronically signed by: Jason Tsai MD 07/17/2024 02:29 PM KIMBERLI
== END 2024-07-17 08:38 | disposition home or self-care (01) ==
LOC: HO.HOSX 08:37
PROVIDERS: Visit Provider Physician Assistant
DX: M17.11 Unilateral primary osteoarthritis, right knee (principal); M23.91 Unspecified internal derangement of right knee
CPT/HCPCS: 73562

== ENCOUNTER → 2024-07-17 11:26 | Outpatient (BNV) | payer BC, SELFPAY | PROVIDERS: Visit Provider Radiology Diagnostic Radiology | DX: M17.11 Unilateral primary osteoarthritis, right knee (principal) | CPT/HCPCS: 73562 ==

== ENCOUNTER 2024-08-06 18:11 | Outpatient (REF) | payer BC, SELFPAY ==
--- NOTE | ~2024-08-06 | MR_ITS ---
CLINICAL HISTORY: M17.11 - Unilateral primary osteoarthritis, right knee MRI right knee without contrast Comparison: None Findings: Full-thickness tear of ACL near tibial insertion. No significant retraction is identified. PCL and collateral ligaments are intact. Quadriceps and patellar tendons intact. Patellar retinacula and cartilage unremarkable. Minimal degenerative signal within the menisci. No full meniscal tears identified. Posterior lateral tibial plateau edema. Question bone bruise, fracture not excludable. Consider CT to better assess bony integrity. No other bony signal abnormalities noted. Minimal joint effusion. Incidental small popliteal cyst. Impression: Full-thickness ACL tear as above Posterior lateral tibial plateau edema Possible bone bruise, fracture not excluded CT may be of value to assess This document has been electronically signed by: Jean Light MD on 08/06/2024 19:47:56
== END 2024-08-06 18:12 | disposition home or self-care (01) ==
LOC: HO.MRI 18:11
PROVIDERS: Visit Provider Physician Assistant
DX: M17.11 Unilateral primary osteoarthritis, right knee (principal)
CPT/HCPCS: 73721

== ENCOUNTER → 2024-08-06 18:19 | Outpatient (BNV) | payer BC, SELFPAY | PROVIDERS: Visit Provider Radiology Diagnostic Radiology | DX: S83.511A Sprain of anterior cruciate ligament of right knee, initial encounter (principal); M17.11 Unilateral primary osteoarthritis, right knee | CPT/HCPCS: 73721 ==

== ENCOUNTER 2024-08-11 15:22 | Outpatient (AMB) | payer BC, SELFPAY ==
--- NOTE | 2024-08-11 15:28 | A.OFFVIS_ITS ---
Vital Signs 08/11/24 15:29 Height 5 ft 3 in Weight 160 lb BMI 28.3 BP 110/72 Blood Pressure Location Rt brachial Position Sitting Pulse 86 Pulse Source Pulse Oximeter Pulse Oximetry (%) 95 Oxygen Delivery Method Room Air Intake Visit Reasons: 6mo. F/U Intake Note: Patient present follow up Sleep. HST in chart Accompanied by: Self / Same As Patient Allergies No Known Allergies Allergy (Verified 08/11/24 15:34) HPI Comments Details: 44-yr-old female presents for follow-up for sleep difficulties. She continues to have snoring, poor sleep, and daytime tiredness. Additionally, she states that her sleep disturbances have potentially worsened by a recent right ACL tear in the knee and shoulder injury- d/t a skiing accident (has ortho f/u this Saturday to discuss tx). Prior to the incident, she was notably active and remains eager to reinstate her exercise regimen, considering alternative low-impact activities like swimming for muscle maintenance and sleep facilitation. Her recent home sleep study demonstrated an apnea-hypopnea index of 1.3, deemed normal; nonetheless, snoring remains pronounced within her sleep patterns. Despite hesitations stemming from the cost implications, she is considering CPAP treatment but awaits further work-up. When she does not sleep well, she is more prone to have a migraine. She describes a long-standing history with migraine headaches characterized by rapid-onset, often accompanied by nausea and vomiting. She recalls a specific event intensifying these symptoms due to her migraine's quick escalation. Currently reliant on ibuprofen 400mg prn, the patient has refrained from prescription medications, expressing a preference for non-pharmaceutical remedies and exploring preventative options. 01/28/2024, initially HPI: Patient reports she has been awakening hearing herself groaning/moaning for some time, but did not think much of this. However, she has been noticing increased daytime tiredness and is now concerned she may have sleep apnea. Recent CBC, CMP, TSH- WNL. B-12 low normal- states started a vit B complex. Vit D total, 23 L- is not taking any supplement for this. Sleep questionnaire: Have you ever been diagnosed with a sleep disorder? No Have you ever had a sleep study in the past? No Have you ever been treated for a sleep disorder? No Do you take medications for a sleep disorder? Rarely takes Melatonin if has not slept well for a few days and feels a migraine coming on. Do you have difficulty initiating sleep? No Do you have difficulty maintaining sleep? Yes, Wakes up a lot . Do you wake up tired? Yes Do you have daytime tiredness or fatigue? Yes Do you easily fall asleep when inactive? Yes Do you snore? Yes Do you wake up gasping at night? No Do you have episodes of apneas? No Do you have episodes of nocturnal chest pain or dyspnea? No Do you have bruxism? Yes If yes, do you wear a mouth guard when sleeping? no. dentist has not advised her to. Do you have headaches upon awakening? Rare in the morning, but can have headache in afternoon when she feels exhausted Do you wake up with dry mouth or throat? No Do you have GERD? No Do you have nocturia? Yes- at least once a night Do you have nocturnal leg cramps? Occasional leg cramp- if stretches a certain way Do you have symptoms of restless legs? No Do you act out your dreams? No Do you have sleep paralysis? No Do you have drop attacks? No Do you ever have hypnogenic hallucinations? No Hypersomnolence questionnaire: Have you ever had episodes of sudden weakness? No Have you ever had episodes of sudden weakness associated with strong emotions? No Sleep hygiene questionnaire: What is your usual sleep routine? Usual bedtime is at 9:30pm; Usual wake-up time is at 5am. Do you take naps? rarely may take an after work nap Is your sleep environment cool, dark, and quiet? Yes Do you exercise? has just started again- 1/2 hr cardio- kickboxing class- hoping to do 3 days per week. Do you take caffeine or other stimulants? a cup of coffee in am Do you use electronics in bed? May use TV to wind down in bed before going to sleep. 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 Current occupational exposures/hazards: No Cognitive needs: No Hearing needs: No Vision needs: No Female Reproductive History Menstrual Age of Menarche: 12 Physical Exam Vital Signs: Last Vital Signs Pulse 86 08/11/24 15:29 BP 110/72 08/11/24 15:29 Pulse Ox 95 08/11/24 15:29 Oxygen Delivery Method Room Air 08/11/24 15:29 BMI result Body Mass Index 28.3 Const General: no acute distress Orientation/consciousness: patient oriented x3 Resp Effort & Inspection: normal respiratory effort and able to speak in complete sentences Neuro General: patient oriented x3 Cranial nerves: Yes CN's II-XII intact bilaterally Psych Mental Status: mental status grossly normal Speech and movement: Clear speech present Attitude: cooperative Assessment & Plan Assessment & Plan (1) Snoring: Comment: Patient snores during the night. Will refer to Sleep Medicine for REGINA workup. Code(s): R06.83 - Snoring Category: Medical (2) Sleep difficulties: Code(s): G47.9 - Sleep disorder, unspecified Category: Medical (3) Excessive daytime sleepiness: Code(s): G47.19 - Other hypersomnia Category: Medical (4) Migraine without aura: Code(s): G43.009 - Migraine without aura, not intractable, without status migrainosus Category: Medical Plan Reviewed HST, inconclusive. Patient advised to undergo in-lab PSG to further assess for sleep apnea. We will also request ENT consult to evaluate for secondary causes of snoring and possible treatment options. Patient is open to trying CPAP in the event that sleep study does show even mild sleep apnea. For migraines, I reiterated the importance of prompt intervention, although I respected her preference for non-pharmacological measures, suggesting neuromodulation devices as effective alternatives. May use ibuprofen 400 mg every 4-6 hours p.r.n.. List of nonpharmacological migraine treatment intervention shared patient, inclu maycol nutraceuticals preventative therapies and the neuromodulation device cephaly- which patient seems most interested in. Will follow-up upon review of above and patient to follow-up in clinic in 6 months or sooner prn. Patient was informed and verbally consented to the use of an ambient scribe for clinic note documentation during this visit. Orders: Orders RT PSG in-lab sleep study Today G47.19 - Other hypersomnia, G47.9 - Sleep disorder, unspecified Referrals Ear/Nose/Throat Referral R06.83 - Snoring Coding Level of Care Code Est Pt Level 4 (25630) Diagnoses Snoring R06.83 Sleep difficulties G47.9 Excessive daytime sleepiness G47.19 Migraine without aura G43.009
[2024-08-11 15:29] VITALS: BP 110/72; PULSE 86; O2SAT 95; BMI 28.3
== END 2024-08-12 07:30 | disposition home or self-care (01) ==
PROVIDERS: PCP Nurse Practitioner Primary Care; Visit Provider Nurse Practitioner Family
DX: R06.83 Snoring (principal); G47.9 Sleep disorder, unspecified; G47.19 Other hypersomnia; G43.009 Migraine without aura, not intractable, without status migrainosus
CPT/HCPCS: 99214

== ENCOUNTER 2024-08-14 14:00 | Outpatient (AMB) | payer BC, SELFPAY ==
--- NOTE | 2024-08-14 14:00 | MHC.OFFVIS ---
Vital Signs 08/14/24 14:02 Height 5 ft 3 in Weight 160 lb BMI 28.3 Intake Visit Reasons: Tel-MR knee RT review Intake Note: Briseida is a 44 year old female who presents today for an evaluation of right knee MRI. Patient reports her knee pain has been increasing since her last visit. States she is now having discomfort in her right ankle that may be caused from limping. Allergies No Known Allergies Allergy (Verified 08/14/24 14:03) Medication List - Last Reconciled 08/14/24 by Tristan Huitron PA-C ibuprofen 400 mg PO Q6-8H PRN HPI HPI Tel-MR knee RT review: Details: 44-year-old female presents for a telehealth visit right knee MRI review. She sustained a skiing injury which resulted in right knee pain and instability. She states she continues to have pain in the right knee which is limiting her ability to perform daily activities. 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 occupational exposures/hazards: No Cognitive needs: No Hearing needs: No Vision needs: No Female Reproductive History Menstrual Age of Menarche: 12 Review of Systems Const All systems reviewed & are unremarkable except as noted in HPI and below Physical Exam Vital Signs: BMI result Body Mass Index 28.3 Resp Effort & Inspection: normal respiratory effort and able to speak in complete sentences Results Reviewed Results Reviewed: Impression: Full-thickness ACL tear as above Posterior lateral tibial plateau edema Possible bone bruise, fracture not excluded CT may be of value to assess Assessment & Plan Assessment & Plan (1) Complete tear of anterior cruciate ligament of right knee: Code(s): S83.511A - Sprain of anterior cruciate ligament of right knee, initial encounter Category: Medical Plan: I discussed the extent of the patient's MRI with her today which includes ACL tear of the right knee. We discussed surgical and nonsurgical intervention. Given her level of activity and the amount of instability she is experiencing with everyday activity she would like to proceed with surgical intervention. I did explain the procedure in detail along with the course of recovery. She states that she is having some stiffness in the knee so I recommend a course of physical therapy to work on prehab exercises I also explained over the phone how she can work on these exercises to get her motion with putting a towel under her heel and extension. We also discussed heel slides and activation of the quad by making a muscle. Like to have her come in and meet with Dr. Aguilera to discuss further and proceed with booking for right knee ACL reconstruction potentially with an allograft. She is content with this plan and will follow up as discussed. Orders: Orders PT Evaluation and Treatment 08/14/24 S83.511A - Sprain of anterior cruciate ligament of right knee, initial encounter Coding Level of Care Code Tele Est Pt Level 4 (97754) Complex EM visit Add On G2211 Diagnoses Complete tear of anterior cruciate ligament of right knee S83.511A
[2024-08-14 14:02] VITALS: BMI 28.3
== END 2024-08-14 15:33 | disposition home or self-care (01) ==
LOC: HO.HOS 14:00
PROVIDERS: PCP Internal Medicine; Visit Provider Physician Assistant
DX: S83.511A Sprain of anterior cruciate ligament of right knee, initial encounter (principal)

== ENCOUNTER → 2024-08-14 14:00 | Outpatient (BNVA) | payer BC, SELFPAY | PROVIDERS: PCP Internal Medicine; Visit Provider Physician Assistant | DX: S83.511A Sprain of anterior cruciate ligament of right knee, initial encounter (principal); X58.XXXA Exposure to other specified factors, initial encounter; Y93.23 Activity, snow (alpine) (downhill) skiing, snowboarding, sledding, tobogganing and snow tubing; Y92.9 Unspecified place or not applicable; Y99.9 Unspecified external cause status | CPT/HCPCS: 98967 ==

== ENCOUNTER 2024-08-20 10:21 | Outpatient (AMB) | payer BC, SELFPAY ==
[2024-08-20 10:33] VITALS: BP 110/70; PULSE 79; TEMP 36.9; O2SAT 99; BMI 28.0
--- NOTE | 2024-08-20 10:33 | MHC.PC.OV ---
Vital Signs 08/20/24 10:33 Height 5 ft 3 in Weight 158 lb BMI 28.0 BP 110/70 Blood Pressure Location Lt brachial Position Sitting Pulse 79 Pulse Source Pulse Oximeter Temp 98.5 F Temp Source Oral Pulse Oximetry (%) 99 Oxygen Delivery Method Room Air Intake Visit Reasons: [facility] 08/16/24 Severe joint pain Intake Note: Pt is here today for a ER follow up visit. Pt states that she has been having pain in her joints and muscles pain and cant move her arms and legs. Pt states that she is also getting swelling in her feet and hands. Allergies No Known Allergies Allergy (Verified 08/20/24 10:37) Medication List - Last Reconciled 08/20/24 by July Power MD baclofen 10 mg PO BEDTIME meloxicam 15 mg PO DAILY Tobacco use date assessed: 08/20/24 Dental Screening Dental Screen Date: 08/20/24 Did you have a dental visit in the last 12 months?: Yes Did you have a dental problem in the last 6 months where you did not have access to dental care?: No Was dental information given to patient?: Patient has dentist HPI [facility] 08/16/24 Severe joint pain HPI Details Pt presents for f/u of ER visit for 1 week of acute bilateral shoulder and hand pain and stiffness worse in the morning and in the end of the day. Patient had chills and low-grade fever for 1 day. There is no rash or joint swelling or erythema. She denies URI symptoms, cough GI or complaints. Patient has been under stress related to her work. Blood work done in ER showed slightly elevated CRP level otherwise was normal including negative Lyme titer.. Patient was started on a Medrol Dosepak and reports feeling better in the morning after taking the medication but the stiffness and pain are worse at the end of the day. 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 Jason Edward, Trena Sumner, Geovanny Tucker and colleagues, with an educational kaleb from [employer]. Review of Systems Const All systems reviewed & are unremarkable except as noted in HPI and below Eyes Reports no additional complaints ENT Reports no additional complaints Card Reports no additional complaints Resp Reports no additional complaints GI Reports no additional complaints Reports no additional complaints Physical exam (Primary Care) Vital Signs: Last Vital Signs Temp 98.5 F 08/20/24 10:33 Pulse 79 08/20/24 10:33 BP 110/70 08/20/24 10:33 Pulse Ox 99 08/20/24 10:33 Oxygen Delivery Method Room Air 08/20/24 10:33 BMI result Body Mass Index 28.0 Tobacco/Smoking Status: Tobacco use Status Tobacco use date assessed 08/20/24 08/20/24 10:37 Patient Tobacco Use Status Never used Tobacco 08/20/24 10:33 e-Cigarette/Vaping Use Never Used 08/20/24 10:33 Thrive Assessment: Date of Thrive Assessment Date Thrive assessed 08/20/24 08/20/24 10:33 Const General: no acute distress HENMT Head: Yes normal to inspection Ears: TM's normal bilaterally General nose exam: Normal external nose present Mouth: Normal oral and palatal mucosa present Throat: Yes posterior oropharynx normal Eyes General: appearance normal, both eyes and all related structures Neck Neck: Yes no lymphadenopathy and Yes supple Resp Effort & Inspection: normal respiratory effort Auscultation: clear to auscultation bilaterally Cardio Rhythm: regular rhythm Heart sounds: S1 normal heart sound present and S2 normal heart sound present GI Inspection: Yes normal to inspection Palpation (GI): Soft to palpation Percussion: Yes normal to percussion Auscultation: normal bowel sounds Skin General skin exam: no rashes or lesions noted Extrem General: Yes no clubbing, cyanosis or edema Right upper extremity: normal to inspection and full ROM Left upper extremity: normal to inspection and full ROM Right lower extremity: normal to inspection and full ROM Left lower extremity: normal to inspection and full ROM Coding Level of Care Code Est Pt Level 3 (27051) Diagnoses Arthralgia M25.50 Assessment & Plan Assessment & Plan (1) Arthralgia: Code(s): M25.50 - Pain in unspecified joint Category: Medical Plan: For general arthralgia or arthritis panel will be obtained. Urine culture will be checked for UA consistent with bacteriuria but patient has been asymptomatic. Meloxicam and baclofen are prescribed and patient will follow-up in 1 week Orders: Orders Rheumatoid Factor Today M25.50 - Pain in unspecified joint LIDIA Reflex Titer and Pattern Today M25.50 - Pain in unspecified joint Cyclic Citrullinated Peptide Today M25.50 - Pain in unspecified joint Urine Culture Today M25.50 - Pain in unspecified joint Medications: New baclofen 10 mg PO BEDTIME 30 tabs 0RF meloxicam 15 mg PO DAILY 30 tabs 0RF
== END 2024-08-20 11:26 | disposition home or self-care (01) ==
PROVIDERS: PCP Internal Medicine; Visit Provider Internal Medicine
DX: M25.50 Pain in unspecified joint (principal)

== ENCOUNTER 2024-08-20 10:21 | Outpatient (REF) | payer BC, SELFPAY ==
[2024-08-20 13:52] LABS: Rheumatoid Factor < 13.0 IU/mL (<15.0)
[2024-08-23 08:19] LABS: Cyclic Citrullinated Peptide <16 UNITS
[2024-08-26 15:33] LABS: Anti Nuclear Antibody Screen POSITIVE (NEGATIVE)
== END 2024-08-20 10:22 | disposition home or self-care (01) ==
LOC: HO.HMGCLDS 10:21
PROVIDERS: PCP Internal Medicine; Visit Provider Internal Medicine
DX: M25.50 Pain in unspecified joint (principal)
CPT/HCPCS: 36415; 86038; 86039; 86200; 86431; 87086

== ENCOUNTER 2024-08-21 11:59 | Outpatient (AMB) | payer BC, SELFPAY ==
--- NOTE | 2024-08-21 12:11 | A.OFFVIS_ITS ---
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
--- NOTE | 2024-08-21 12:17 | A.OFFVIS_ITS ---
Vital Signs 08/21/24 12:18 Height 5 ft 3 in Weight 158 lb BMI 28.0 Intake Visit Reasons: RT ACL tear, discuss surgical option Intake Note: Briseida is a 44 year old female who presents today for a follow up of right knee ACL tear, DOI 07/05/24. Patient is here to discuss surgical options. She reports that she was recently seen at [facility] due to swelling in her ankle, feet, and wrists. She was prescribed prednisone which has been helping. Allergies No Known Allergies Allergy (Verified 08/21/24 12:22) HPI HPI RT ACL tear, discuss surgical option: Details: This is a 44 yo healthy F who injured her right knee while skiing. She has been improving but still unable to resume her prior level of activity. She is very active. She plays soccer, hikes and skis among other activities. While skiing dshe describes a twisting mechanism and a pop. She has an MRI and is here for review. 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 No joint line pain. Near full flexion Results Reviewed Results Reviewed: I personally reviewed the MR images. Full-thickness ACL tear with meniscus intact. Assessment & Plan Assessment & Plan (1) Complete tear of anterior cruciate ligament of right knee: Code(s): S83.511A - Sprain of anterior cruciate ligament of right knee, initial encounter Category: Medical Plan: This is an active and healthy 44 yo F with a right ACL tear. I explained the injury to her and the function of the ACL. I recommend ACL reconstruction with allograft. I described the surgery to her and I discussed the risks benefits and alternatives including but not limited to the risk of pain, infection, stiffness, need for further surgery as well as potential medical complications such as blood clots, pulmonary embolism among others. Her questions were answered and she expressed understanding. Coding Level of Care Code Est Pt Level 4 (31329) Diagnoses Complete tear of anterior cruciate ligament of right knee S83.511A
[2024-08-21 12:18] VITALS: BMI 28.0
== END 2024-08-21 12:52 | disposition home or self-care (01) ==
PROVIDERS: PCP Internal Medicine; Visit Provider Orthopaedic Surgery
DX: S83.511A Sprain of anterior cruciate ligament of right knee, initial encounter (principal)
CPT/HCPCS: 99214

== ENCOUNTER → 2024-08-21 11:59 | Outpatient (BNVA) | payer BC, SELFPAY | PROVIDERS: PCP Internal Medicine; Visit Provider Orthopaedic Surgery ==

== ENCOUNTER → 2024-09-03 20:30 | Outpatient (REF) | payer BC, SELFPAY | LOC: HO.SL 20:30 | PROVIDERS: PCP Internal Medicine; Visit Provider Nurse Practitioner Family | DX: G47.9 Sleep disorder, unspecified (principal); G47.19 Other hypersomnia | CPT/HCPCS: 95810 ==

== ENCOUNTER → 2024-09-03 20:44 | Outpatient (BNV) | payer BC, SELFPAY | PROVIDERS: PCP Internal Medicine; Visit Provider Psychiatry & Neurology Neurology | DX: G47.10 Hypersomnia, unspecified (principal) | CPT/HCPCS: 95810 ==

== ENCOUNTER 2024-09-25 14:47 | Outpatient (AMB) | payer BC, SELFPAY ==
--- NOTE | 2024-09-25 15:35 | A.OFFVIS_ITS ---
Intake Visit Reasons: UDS Allergies No Known Allergies Allergy (Verified 08/21/24 12:22) HPI Comments Details: 09/25/24--Briseida is here for urodynamics. The patient has complaints of urinary incontinence. Interpretation: During the filling phase there was normal sensation, Leakage was observed during cough. Stress test performed at 227ml with (+) leak with cough. Findings consistent with ISD, Objective stress was observed. EMG- Appropriate changes in the waveforms were noted through out the study. I have discussed the risks of bulking injection to the proximal urethra to include but not limited to urine retention requiring a guadarrama catheter, need to repeat the procedure, hematuria, and urgency. 06/15/24--Briseida is a 43-year-old female patient of . She presents to the office today as a new patient for stress incontinence. In discussion with the patient today she reports noting stress incontinence to be present over the last 6 years however feels it is worsening. She reports having had 4 vaginal births in the past and feels after the of her last child she felt stress incontinence has been present. She discusses finding it difficult to workout and or play soccer with her children as she tends to experience episodes of stress incontinence at that time. She is not currently utilizing any Petra pads at this time. She also reports feeling of fullness to her bladder at times. She otherwise denies nocturia, hematuria, dysuria, foul smelling urine, changes to urinary stream, flank pain, fever, and or chills. In office urinalysis results reviewed with the patient today. PVR 0 mL. We discussed at length potential causes of stress incontinence as well as further treatment options. All questions were answered. She otherwise offers no other issues or concerns at this time. 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 Information consent for procedure given to the patient. Discussed technical aspects, risks, benefits and alternatives in full. Addressed all of the patient's questions and concerns regarding the procedure. The patient demonstrated knowledge and understanding. They wish to proceed with this procedure. Preparation The patient was prepped in the usual manner. A waste water or water plant operator was present and in the room. Genitalia was prepped with betadine solution in a sterile manner. Procedure Complex Uroflow Complex uroflow performed by: Chuck Uribe Maximum urinary flow rate (mL/second): [14] Voiding time (seconds): [30] Voided volume (mL): [173] Residual urine (mL): [15] Cystometrogram ? Vaginal/rectal catheter type: vaginal First sensation at (mL): [22] mL First desire at (mL): [168] mL Strong desire to void occured at (mL): [292] mL Strong desire detrussor pressure (cm H2O): [0.6] Maximum fill (mL): [376] mL Voided with max detrussor pressure of (cm H2O): [19] Maximum flow rate (mL/second): [23] mL/s Voided volume (mL): ? [376] Stress test performed at 227ml with (-) leak with valsalva and (+) leak with cough 01026-Idxcaqsjurhgcw w/ RESIDENTIAL SUBSTANCE ABUSE COUNSELOR 03347-Uphvzom-Cgkibjrhqnux 43293-Frsk/Urinary Muscle Study 30567-Ukikf-Dqxfpfwbf Pressure Test Procedure code (CPT) selection complete Office Meds nitrofurantoin monohydrate/macrocrystals 100 mg capsule Performing Provider: Chuck Uribe MD Performing Location: [facility] [place] [facility] Administered by: Sarah Martinez RN on 09/25/24 15:35 Dose Route Admin Location Dispensed Lot Number Expiration Date NDC Avionic Technician 100 mg PO 1 cap Results AMB Urinalysis, Automated UA Leukoctes 0 Pamela/uL Last Edit by Sarah Martinez RN on 09/25/24 15:56 UA Nitrite Negative Last Edit by Sarah Martinez RN on 09/25/24 15:56 UA Urobilinogen 0.2 mg/dL Last Edit by Sarah Martinez RN on 09/25/24 15: 56 UA Protein 0 mg/dL Last Edit by Sarah Martinez RN on 09/25/24 15:56 UA pH 0 Last Edit by Sarah Martinez RN on 09/25/24 15:56 UA Blood 0 Logan/uL Last Edit by Sarah Martinez RN on 09/25/24 15:56 UA Specific [place] 1.0 Last Edit by Sarah Martinez RN on 09/25/24 15:5 6 UA Ketone Negative Last Edit by Sarah Martinez RN on 09/25/24 15:56 UA Bilirubin 0 mg/dL Last Edit by Sarah Martinez RN on 09/25/24 15:56 UA Glucose 0 mg/dL Last Edit by Sarah Martinez RN on 09/25/24 15:56 Results Reviewed Results Reviewed: Laboratory Last Values Urine pH (Auto) 0 09/25/24 14:49 Specific [place] (Auto) 1.0 09/25/24 14:49 Urine Protein (Auto) 0 mg/dL 09/25/24 14:49 Glucose (UA)(Auto) 0 mg/dL 09/25/24 14:49 Urine Ketones (Auto) Negative 09/25/24 14:49 Urine Blood (Auto) 0 Logan/uL 09/25/24 14:49 Urine Nitrite (Auto) Negative 09/25/24 14:49 Urine Bilirubin (Auto) 0 mg/dL 09/25/24 14:49 Urine Urobilinogen (Auto) 0.2 mg/dL 09/25/24 14:49 Leukocyte Esterase (Auto) 0 Pamela/uL 09/25/24 14:49 Assessment & Plan Assessment & Plan (1) Stress incontinence: Code(s): N39.3 - Stress incontinence (female) (male) Category: Medical (2) Intrinsic sphincter deficiency (ISD): Code(s): N36.42 - Intrinsic sphincter deficiency (ISD) Category: Medical Plan Discussed urethral bulking, Bulkamid procedure Orders: Orders AMB Urodynamics Studies 09/25/24 N39.3 - Stress incontinence (female) (male) AMB Urinalysis Automated 09/25/24 Z13.9 - Encounter for screening, unspecified Patient Instructions: The patient had an opportunity to ask questions regarding treatment plan. The patient expressed understanding and agreement with the above treatment plan. The patient is aware they should contact our office by phone for worsening of their current condition or the appearance of new symptoms. Compliance is encouraged with any medications and followup testing that is ordered. It is a privilege to be allowed the opportunity to participate in the urologic care of your patient. If you have any questions or concerns regarding treatment for the above conditions please do not hesitate to contact me. The office telephone contact is [phone]. This note is constructed in part using voice recognition software. While every effort has been made to ensure accuracy plaster molder errors may have been inc luded. Yours sincerely, Chuck Uribe MD Coding Level of Care Code Procedure Only Diagnoses Stress incontinence N39.3 Intrinsic sphincter deficiency (ISD) N36.42 CPT Codes Urodynamic Studies - CPT: 92626-Rhhdtdnkxyorqa w/ RESIDENTIAL SUBSTANCE ABUSE COUNSELOR ([id number]) Urodynamic Studies - CPT: 49933-Enunjyh-Btyssacvcylw ([id number]) Urodynamic Studies - CPT: 65067-Wjkz/Urinary Muscle Study ([id number]) Urodynamic Studies - CPT: 62042-Rbref-Ffblqvjdc Pressure Test ([id number])
== END 2024-09-25 16:08 | disposition home or self-care (01) ==
LOC: HO.HUSH 14:47
PROVIDERS: Visit Provider Urology
DX: N39.3 Stress incontinence (female) (male) (principal); Z13.9 Encounter for screening, unspecified
CPT/HCPCS: 51728; 51741; 51784; 51797

== ENCOUNTER 2024-09-25 14:47 | Outpatient (REF) | payer BC, SELFPAY ==
--- NOTE | ~2024-09-25 | XR_ITS ---
CLINICAL HISTORY: M25.512 - Pain in left shoulder 4 views left shoulder Comparison: None Findings: No fractures or dislocations No significant arthritic change No radiopaque foreign body Normal visualized left chest Impression: Normal left shoulder. No acute skeletal abnormality. This document has been electronically signed by: Medardo Chin MD on 09/28/2024 14:47:52
== END 2024-09-25 14:48 | disposition home or self-care (01) ==
LOC: HO.XRAY 14:47
PROVIDERS: Absent Provider Internal Medicine; PCP Internal Medicine; Visit Provider Urology
DX: M25.512 Pain in left shoulder (principal); N39.3 Stress incontinence (female) (male); N36.42 Intrinsic sphincter deficiency (ISD)
CPT/HCPCS: 51728; 51741; 51784; 51797; 73030; 81003

== ENCOUNTER → 2024-09-25 16:22 | Outpatient (BNV) | payer BC, SELFPAY | PROVIDERS: Absent Provider Internal Medicine; PCP Internal Medicine; Visit Provider Radiology Diagnostic Radiology | DX: M25.512 Pain in left shoulder (principal) | CPT/HCPCS: 73030 ==

== ENCOUNTER 2024-10-13 08:51 | Day surgery (SDC) | payer BC, SELFPAY ==
[2024-10-09 11:52] VITALS: BMI 28.0
--- NOTE | 2024-10-12 12:18 | HO.ANESPROP2 ---
Documented by User: Kim Medina NP 10/12/24 12:18 HPI - Anesthesia Eval Consult details Narrative: 44yo F for Cystoscopy with Bulkamid PMFSH Active Problems Active Problems: All Active Problems Intrinsic sphincter deficiency (ISD) (Acute) Carpal tunnel syndrome on both sides (Acute) Injury of tendon of left rotator cuff (Acute) Arthralgia (Acute) Complete tear of anterior cruciate ligament of right knee (Acute) Migraine without aura (Acute) Internal derangement of right knee (Acute) Knee injury (Acute) Sensation of pressure in bladder area (Acute) Stress incontinence (Acute) Decreased hearing of left ear (Acute) Annual physical exam (Acute) Hyperlipidemia (Acute) Strep pharyngitis (Acute) Shoulder pain, left (Acute) Family planning (Acute) Encounter for IUD removal (Acute) Vitamin D deficiency (Acute) Excessive daytime sleepiness (Acute) Sleep difficulties (Acute) Cervical cancer screening (Acute) Well woman exam with routine gynecological exam (Acute) Presence of 52 mg levonorgestrel-releasing intrauterine device (IUD) (Acute) IUD complication (Acute) Urinary incontinence (Acute) Past Medical History Medical History (Updated 10/13/24 @ 10:31 by Noemy Fuller RN) ACL tear Surgical History Surgical History History of ovarian cystectomy Social History Social History Household Members Other:: , 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/hazards: No Cognitive needs: No Hearing needs: No Vision needs: No Meds Allergies Allergy/AdvReac Type Severity Reaction Status Date / Time No Known Allergies Allergy Verified 10/13/24 10:32 Exam Height,Weight and Vital Signs: Height 5 ft 3 in Weight 71.668 kg Assessment and Plan Assessment Anesthesia Assessment: Chart Reviewed Documented by User: Scott Gallegos MD 10/13/24 10:41 [facility] Past Medical History Medical History (Updated 10/13/24 @ 10:31 by Noemy Fuller RN) ACL tear Family History Family history of problems with anesthesia: No Surgical History Surgical History History of ovarian cystectomy History of Problems with Anesthesia: No Social History Social History Household Members Other:: , 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/hazards: No Cognitive needs: No Hearing needs: No Vision needs: No Meds Allergies Allergy/AdvReac Type Severity Reaction Status Date / Time No Known Allergies Allergy Verified 10/13/24 10:32 Exam Airway Mallampati Class: II TM Dist: >3cm Neck ROM: Full Assessment and Plan Assessment Anesthesia Assessment: Anesthesia Plan Discussed Final Anesthetic Review Family History of Problems with Anesthesia: No History of Problems with Anesthesia: No NPO: Yes ASA Class: II Final Preanesthetic Review: No Changes in Pt Med Stat, Meds/Allgs Chart Reviewed, Consent Obtained/Reviewed and Anes Risks/Benef Reviewed Patient Risk: Low Procedure Risk: Low Anesthetic Plan Anesthetic Plan: TIVA Disposition: Standard PACU
[2024-10-13 10:26] VITALS: BP 105/68; PULSE 71; RESP 14; TEMP 36.4; O2SAT 98; BMI 27.7
[2024-10-13 10:36] LABS: UPreg QC Valid YES; Urine Pregnancy NEGATIVE (NEGATIVE)
[2024-10-13] MEDS: Lactated Ringers 1,000 ML 100 ML IVCONT (10:39)
--- NOTE | 2024-10-13 10:54 | P.OP_ITS ---
Operative Note Operative Note Date of Service: 10/13/24 Narrative: Preop diagnosis: Stress urinary incontinence, Intrinsic sphincter deficiency Postop diagnosis: Stress urinary incontinence, Intrinsic sphincter deficiency Procedure: Cystoscopy urethral bulking, proximal urethra with bulkamid system Surgeon: Dr. Chuck Uribe Details of procedure: The patient was brought into the operating room placed on the OR table in supine position IV sedation was administered. Antibiotics confirmed. The patient was placed in lithotomy position prepped and draped in the usual sterile fashion. Safety time-out was done. A 14 [place] straight catheter was used to send urine for culture. 2% lidocaine jelly was inserted transurethrally 10 mL. Periurethral local with 1% lidocaine 25 gauge needle 5 mL at the 3 o'clock position and 5 mL at the 9 o'clock position. Using the 0 degree 11 cm cystoscope with the light cord in the 6 o'clock position, the bladder was filled with sterile water to 150 mL the bladder was visualized. With the sheath at the 5 o'clock position the needle was inserted to the 1 cm jimy and 0.5 mL of gel was injected there was good bulking noted. This was repeated on the 7 o'clock position. The 2nd needle was inserted into the sheath and an injection was done at the 2 o'clock position and again at the 11 o'clock position. There was bulking of the mucosa noted with good coaptation. The scope was removed. A 12 [place] catheter was used to drain 400 mL. The patient tolerated the procedure and was taken to recovery in stable condition. Complication: none EBL: minimal (<5 mL) Drains: none
--- NOTE | 2024-10-13 10:55 | MHC.SHP ---
Pre-Procedural Eval Section A - 24 Hr Update-Section A only Date of Service: 10/13/24 The patient is an INPATIENT: No The patient has been examined within 24 hours of the surgical procedure. The History & Physical has been completed within 30 days and I have reviewed it.: Yes Section B - Complete if H&P > 30 days Chief Complaint: ZEYAD, Instrinsic sphinter deficiency Allergies: Allergies Allergy/AdvReac Type Severity Reaction Status Date / Time No Known Allergies Allergy Verified 10/13/24 10:32 Plan Diagnosis/Plan: Unchanged I have reviewed the history and physical and performed a pertinent physical examination on my patient. No changes have occurred unless specified. Cystoscopy. Urethral bulking, Bulkamid. I have discussed the risks of bulking injection to the proximal urethra to include but not limited to urine retention requiring a guadarrama catheter, need to repeat the procedure, hematuria, and urgency. Time Spent With Patient Time: Total time managing care of this patient today ____ minutes.
[2024-10-13] MEDS: ceFAZolin Sodium/Dextrose,Iso 2 GM/50 ML PIGGYBACK IV (11:19)
[2024-10-13 12:10] VITALS: BP 111/74; PULSE 85; RESP 16; TEMP 36.6; O2SAT 98
[2024-10-13 12:15] VITALS: BP 93/62; PULSE 73; RESP 18; O2SAT 100
[2024-10-13 12:20] VITALS: BP 95/60; PULSE 74; RESP 18; O2SAT 100
[2024-10-13] MEDS: Phenazopyridine HCL 200 MG TABLET PO (12:29)
== END 2024-10-13 13:12 | disposition home or self-care (01) ==
PROVIDERS: Nurse Practitioner; PCP Internal Medicine; Visit Provider Urology
PROC: (CPT 51715; principal; 2024-10-13 11:50)
DX: N39.3 Stress incontinence (female) (male) (principal); N36.42 Intrinsic sphincter deficiency (ISD); Z98.890 Other specified postprocedural states
CPT/HCPCS: 51715; 81025; 87086; J0690; J2003; J2405; J2704; J3010; L8606

== ENCOUNTER → 2024-10-13 08:51 | Outpatient (BNV) | payer BC, SELFPAY | PROVIDERS: PCP Internal Medicine; Visit Provider Urology | DX: N36.42 Intrinsic sphincter deficiency (ISD) (principal); N39.3 Stress incontinence (female) (male) | CPT/HCPCS: 51715 ==

== ENCOUNTER → 2024-10-15 13:52 | Outpatient (BNVA) | payer BC, SELFPAY | PROVIDERS: PCP Internal Medicine; Visit Provider Urology | DX: N39.3 Stress incontinence (female) (male) (principal) | CPT/HCPCS: 51798 ==

== ENCOUNTER 2025-01-11 15:36 | Outpatient (AMB) | payer BC, SELFPAY ==
--- NOTE | 2025-01-11 15:46 | MHC.OFFVIS ---
Intake Visit Reasons: ISD/Bulkamid follow up Intake Note: Patient presents today for ISD/Bulkamid follow up Urology Medication:None Blood Thinner:None Antibiotic Allergies:None Allergies No Known Allergies Allergy (Verified 01/11/25 15:48) HPI Comments Details: 01/11/25--Briseida is status post urethral bulking on 10/13/2024 urinalysis today is negative. History of Present Illness - The patient is a 44-year-old female presenting with a follow-up after urethral bulking procedure. - The patient underwent urethral bulking on 10/13/24 and reports no urinary leakage since the procedure. - She has not been very active due to knee surgery performed soon after the urethral procedure. - The patient has been engaged in physical therapy for her knee, with expectations of returning to normal activities in about a year. Results - Urinalysis: Negative for infection or blood Plan - Follow-up appointment scheduled for one year to reassess the status post urethral bulking procedure. - Patient remains in physical therapy for knee rehabilitation. - Patient instructed to contact the clinic if any issues or questions arise before the next scheduled appointment. 09/25/24--Briseida is here for urodynamics. The patient has complaints of urinary incontinence. Interpretation: During the filling phase there was normal sensation, Leakage was observed during cough. Stress test performed at 227ml with (+) leak with cough. Findings consistent with ISD, Objective stress was observed. EMG- Appropriate changes in the waveforms were noted through out the study. I have discussed the risks of bulking injection to the proximal urethra to include but not limited to urine retention requiring a guadarrama catheter, need to repeat the procedure, hematuria, and urgency. 06/15/24--Briseida is a 43-year-old female patient of . She presents to the office today as a new patient for stress incontinence. In discussion with the patient today she reports noting stress incontinence to be present over the last 6 years however feels it is worsening. She reports having had 4 vaginal births in the past and feels after the of her last child she felt stress incontinence has been present. She discusses finding it difficult to workout and or play soccer with her children as she tends to experience episodes of stress incontinence at that time. She is not currently utilizing any Petra pads at this time. She also reports feeling of fullness to her bladder at times. She otherwise denies nocturia, hematuria, dysuria, foul smelling urine, changes to urinary stream, flank pain, fever, and or chills. In office urinalysis results reviewed with the patient today. PVR 0 mL. We discussed at length potential causes of stress incontinence as well as further treatment options. All questions were answered. She otherwise offers no other issues or concerns at this time. 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 Current occupational exposures/hazards: No Cognitive needs: No Hearing needs: No Vision needs: No Female Reproductive History Menstrual Age of Menarche: 12 Review of Systems Const All systems reviewed & are unremarkable except as noted in HPI and below Reports no additional complaints Eyes Reports no additional complaints ENT Reports no additional complaints Card Reports no additional complaints Resp Reports no additional complaints GI Reports no additional complaints Reports as per HPI Musc Reports no additional complaints Skin/Breast Reports system reviewed and no additional complaints, except as documented Neuro Reports no additional complaints Psych Reports no additional complaints Endo Reports no additional complaints Betito/Lymph Reports no additional complaints Aller/Immun Reports no additional complaints Assessment & Plan Assessment & Plan (1) Urinary incontinence: Comment: s/p bulkamid Code(s): R32 - Unspecified urinary incontinence Category: Medical Qualifiers: Urinary Incontinence type: stress incontinence Qualified Code(s): N39.3 - Stress incontinence (female) (male) Plan Plan - Follow-up appointment scheduled for one year to reassess the status post urethral bulking procedure. Patient Instructions: The patient had an opportunity to ask questions regarding treatment plan. The patient expressed understanding and agreement with the above treatment plan. The patient is aware they should contact our office by phone for worsening of their current condition or the appearance of new symptoms. Compliance is encouraged with any medications and followup testing that is ordered. It is a privilege to be allowed the opportunity to participate in the urologic care of your patient. If you have any questions or concerns regarding treatment for the above conditions please do not hesitate to contact me. The office telephone contact is [phone]. This note is constructed in part using voice recognition software. While every effort has been made to ensure accuracy division plant engineer errors may have been included. Yours sincerely, Chuck Uribe MD Scribe Plan - Not visible on output: Patient was informed and verbally consented to the use of an ambient scribe for clinic note documentation during this visit. Coding Level of Care Code Est Pt Level 3 (42616) Diagnoses Stress incontinence of urine N39.3 Urinary Incontinence type: stress incontinence
== END 2025-01-11 16:18 | disposition home or self-care (01) ==
LOC: HO.HUSH 15:36
PROVIDERS: PCP Internal Medicine; Visit Provider Urology
DX: Z13.9 Encounter for screening, unspecified (principal); N39.3 Stress incontinence (female) (male)
CPT/HCPCS: 99213

== ENCOUNTER → 2025-01-11 15:36 | Outpatient (BNVA) | payer BC, SELFPAY | PROVIDERS: PCP Internal Medicine; Visit Provider Urology | DX: N39.3 Stress incontinence (female) (male) (principal) | CPT/HCPCS: 81003 ==

== ENCOUNTER 2025-02-25 10:01 | Outpatient (AMB) | payer BC, SELFPAY ==
--- NOTE | 2025-02-25 10:03 | A.OFFVIS_ITS ---
Vital Signs 02/25/25 10:11 Height 5 ft 2 in Weight 156 lb 2 oz BMI 28.6 BP 108/74 Blood Pressure Location Lt brachial Position Sitting Pulse 64 Pulse Source Pulse Oximeter Pulse Oximetry (%) 97 Oxygen Delivery Method Room Air Intake Visit Reasons: f/u sleep study Intake Note: Patient presents follow up for sleep study - in chart Cloth Folder Machine Required: No Accompanied by: Self / Same As Patient Allergies No Known Allergies Allergy (Verified 02/25/25 10:15) HPI Comments Details: 44-yr-old female presents for follow-up for sleep difficulties. Patient underwent a right knee ACL reconstructive surgery in October, which has h elped to reduce her knee pain though still working on exercises to return to her baseline. 09/03/2024 in lab PSG showed- AHI 3.2 per hour, REM AHI 21 per hour, O2 santa 81% with SpO2 under 88% times 0.5 minutes, with average SpO2 95%, periodic limb movement of sleep 22 per hour, with PLMS arousal index 0.7 per hour, and overall sleep efficiency 80%. * Results do not show any evidence for sleep disordered or limb movement disorder of sleep. She reports initially after the knee surgery, her sleep was worse. However, as the knee has healed, her sleep has improved. She is exercising every day- 30 minutes of stationary cycling, weight training. She is eating overall better, and eating earlier in the day. When she does not sleep well x's 2 nights, this will trigger a migraine. So she will take a melatonin the next night, which helps to prevent a migraine attack. Usually carries Ibuprofen with her. Baseline migraine headaches characterized by rapid-onset, often accompanied by nausea and vomiting. 01/28/2024, initially HPI: Patient reports she has been awakening hearing herself groaning/moaning for some time, but did not think much of this. However, she has been noticing increased daytime tiredness and is now concerned she may have sleep apnea. Recent CBC, CMP, TSH- WNL. B-12 low normal- states started a vit B complex. Vit D total, 23 L- is not taking any supplement for this. Sleep questionnaire: Have you ever been diagnosed with a sleep disorder? No Have you ever had a sleep study in the past? No Have you ever been treated for a sleep disorder? No Do you take medications for a sleep disorder? Rarely takes Melatonin if has not slept well for a few days and feels a migraine coming on. Do you have difficulty initiating sleep? No Do you have difficulty maintaining sleep? Yes, Wakes up a lot . Do you wake up tired? Yes Do you have daytime tiredness or fatigue? Yes Do you easily fall asleep when inactive? Yes Do you snore? Yes Do you wake up gasping at night? No Do you have episodes of apneas? No Do you have episodes of nocturnal chest pain or dyspnea? No Do you have bruxism? Yes If yes, do you wear a mouth guard when sleeping? no. dentist has not advised her to. Do you have headaches upon awakening? Rare in the morning, but can have headache in afternoon when she feels exhausted Do you wake up with dry mouth or throat? No Do you have GERD? No Do you have nocturia? Yes- at least once a night Do you have nocturnal leg cramps? Occasional leg cramp- if stretches a certain way Do you have symptoms of restless legs? No Do you act out your dreams? No Do you have sleep paralysis? No Do you have drop attacks? No Do you ever have hypnogenic hallucinations? No Hypersomnolence questionnaire: Have you ever had episodes of sudden weakness? No Have you ever had episodes of sudden weakness associated with strong emotions? No Sleep hygiene questionnaire: What is your usual sleep routine? Usual bedtime is at 9:30pm; Usual wake-up time is at 5am. Do you take naps? rarely may take an after work nap Is your sleep environment cool, dark, and quiet? Yes Do you exercise? has just started again- 1/2 hr cardio- kickboxing class- hoping to do 3 days per week. Do you take caffeine or other stimulants? a cup of coffee in am Do you use electronics in bed? May use TV to wind down in bed before going to sleep. 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 Current occupational exposures/hazards: No Cognitive needs: No Hearing needs: No Vision needs: No Female Reproductive History Menstrual Age of Menarche: 12 Physical Exam Vital Signs: Last Vital Signs Pulse 64 02/25/25 10:11 BP 108/74 02/25/25 10:11 Pulse Ox 97 02/25/25 10:11 Oxygen Delivery Method Room Air 02/25/25 10:11 BMI result Body Mass Index 28.6 Const General: no acute distress Orientation/consciousness: patient oriented x3 Resp Effort & Inspection: normal respiratory effort and able to speak in complete sentences Neuro General: patient oriented x3 Cranial nerves: Yes CN's II-XII intact bilaterally Psych Mental Status: mental status grossly normal Speech and movement: Clear speech present Attitude: cooperative Assessment & Plan Assessment & Plan (1) Sleep difficulties: Comment: improved Code(s): G47.9 - Sleep disorder, unspecified Category: Medical (2) Migraine without aura: Code(s): G43.009 - Migraine without aura, not intractable, without status migrainosus Category: Medical Qualifiers: Status migrainosus presence: without status migrainosus Intractability: not intractable Qualified Code(s): G43.009 - Migraine without aura, not intractable, without status migrainosus Plan For sleep difficulties: Improved status post right knee ACL repair. Reviewed in-lab PSG, no evidence for sleep apnea or periodic limb movement of sleep. ENT consult as ordered to evaluate for secondary causes of snoring and possible treatment options. If snoring or sleep difficulties worsen, could consider try sleeping with her head elevated, such as with a sleep apnea wedge pillow Continue to engage in regular physical activity For migraines: Improved with reduce frequency. May continue to use melatonin as needed for sleep, to prevent breakthrough migraine attack. May use ibuprofen 400 mg every 4-6 hours p.r.n.. Previously shared with patient: a list of nonpharmacological migraine treatment intervention shared, including nutraceuticals preventative therapies and the neuromodulation device cephaly- which patient seems most interested in. Will follow-up upon review of above and patient to follow-up in clinic in 6 months or sooner prn. Pt to follow-up in 6 months or sooner prn. Coding Level of Care Code Est Pt Level 3 (44877) Diagnoses Sleep difficulties G47.9 Migraine without aura and without status migrainosus, not intractable G43.009 Status migrainosus presence: without status migrainosus Intractability: not intractable
[2025-02-25 10:11] VITALS: BP 108/74; PULSE 64; O2SAT 97; BMI 28.6
== END 2025-02-25 11:02 | disposition home or self-care (01) ==
LOC: HO.HSMS 10:01
PROVIDERS: PCP Nurse Practitioner Primary Care; Visit Provider Nurse Practitioner Family
DX: G47.9 Sleep disorder, unspecified (principal); G43.009 Migraine without aura, not intractable, without status migrainosus
CPT/HCPCS: 99213